=== PATIENT | male | born 1970 | race Caucasian/White ===

== ENCOUNTER 2016-12-05 12:07 | Emergency (ER) | payer MEDICARE, OTHER ==
[~2016-12-05] VITALS: Ht 180.3 cm; Wt 109.3 kg
[2016-12-05] MEDS ORDERED: GEMF600T PO (12:16)
[2016-12-05] MEDS ORDERED: NAPR550T3 PO (12:16)
[2016-12-05] MEDS ORDERED: TRAM-533 PO (12:16)
[2016-12-05] MEDS ORDERED: OMEP20CA3 PO (12:16)
[2016-12-05] MEDS ORDERED: SM A PO (12:16)
[2016-12-05] MEDS ORDERED: VITA50003 PO (12:16)
[2016-12-05] MEDS ORDERED: METOCLOPRAMIDE 10 MG TAB PO ONE (12:45)
[2016-12-05] MEDS ORDERED: KETOROLAC 60 MG/2 ML VIAL (J1885) IM ONE (12:45)
--- NOTE | 2016-12-05 13:04 | REP ---
CT Head without contrast HISTORY: Trauma COMPARISON: None There is no intraparenchymal hemorrhage, acute infarct, mass or midline shift. The ventricular system is normal in appearance. There is no extra cerebral collection. There is no fracture. The visualized sinuses are clear. IMPRESSION: There is no intracranial lesion. Signed by Shar Macias MD 12/05/2016 12:56 P
[2016-12-05 13:13] VITALS: BP 148/75
== END 2016-12-05 13:13 | disposition home or self-care (01) ==
LOC: M ED 12:30
DX: S00.03XA Contusion of scalp, initial encounter (principal); S06.0X0A Concussion without loss of consciousness, initial encounter; W22.8XXA Striking against or struck by other objects, initial encounter; Y92.89 Other specified places as the place of occurrence of the external cause; Y93.89 Activity, other specified; Y99.8 Other external cause status; Z87.820 Personal history of traumatic brain injury; Z79.899 Other long term (current) drug therapy; Z79.1 Long term (current) use of non-steroidal anti-inflammatories (NSAID); Z79.891 Long term (current) use of opiate analgesic; Z88.0 Allergy status to penicillin; Z88.1 Allergy status to other antibiotic agents; Z91.018 Allergy to other foods
CPT/HCPCS: 70450; 96372; 99282; J1885

== ENCOUNTER → 2017-04-30 | Outpatient (REF) | payer MEDICARE, OTHER ==
[~2017-04-30] MED LIST: GEMF600T PO; NAPR550T22 PO; OMEP20CA3 PO; SM A PO; TRAM-533 PO; VITA1CAP40 PO
[2017-04-30 14:25] LABS: BACTERIA, URINE NONE SEEN; CALCIUM OXALATE CRYSTALS,URINE MOD AMOUNT /hpf; HYALINE CAST, URINE NONE SEEN /lpf (0-1); MICROSCOPIC EXAM PERFORMED; RBC, URINE 0-1 /hpf (0-3); SQUAMOUS EPITHELIAL CELL URINE NONE SEEN /hpf (SMALL AMT); WBC, URINE 0-1 /hpf (0-3)
== END ==
LOC: M LAB REF 12:54
PROVIDERS: ATTEND Nurse Practitioner Adult Health
DX: R31.9 Hematuria, unspecified (principal)

== ENCOUNTER → 2017-08-21 | Outpatient (REF) | payer MEDICARE, OTHER ==
[2017-08-21 16:45] LABS: FERRITIN 396 NG/ML (26-388); IRON (FE) 83 UG/DL (65-175); PERCENT SATURATION 29.4 % (19.7-50.0); TOTAL IRON BINDING CAPACITY 282 UG/DL (250-450)
[2017-08-22 08:58] LABS: CONTROL LINE HPYORI INT CTR LINE PRESENT; H PYLORI QUALITATIVE IgG NEGATIVE (NEGATIVE)
[2017-08-24 00:07] LABS: ANTINUCLEAR ANTIBODIES DIRECT Negative (Negative)
[2017-08-24 08:06] LABS: CERULOPLASMIN 39.5 mg/dL (16.0-31.0)
== END ==
LOC: M LAB REF 16:05
DX: K76.0 Fatty (change of) liver, not elsewhere classified (principal); R10.13 Epigastric pain; R16.0 Hepatomegaly, not elsewhere classified
CPT/HCPCS: 83550

== ENCOUNTER → 2017-09-04 | Outpatient (REF) | LOC: M SMT 14:29 | DX: M51.37 Other intervertebral disc degeneration, lumbosacral region (principal) ==

== ENCOUNTER 2017-10-16 07:53 | Day surgery (SDC) | payer MEDICARE, OTHER ==
[2017-10-16] MEDS: NS 1,000 ML IV (08:00)
[2017-10-16] MEDS ORDERED: PROPOFOL 200 MG/20 ML VIAL As Ordered ×2 (08:36→11:10)
[2017-10-16] MEDS ORDERED: LIDOCAINE 2% INJ 100 MG/5 ML SDV (FOR ANES.) As Ordered (08:36)
[2017-10-16] MEDS ORDERED: fentaNYL 100 MCG/2 ML INJECTION (J3010) As Ordered (10:36)
== END 2017-10-16 12:17 | disposition home or self-care (01) ==
LOC: M OPP 07:53
DX: K62.5 Hemorrhage of anus and rectum (principal); D12.0 Benign neoplasm of cecum; K64.0 First degree hemorrhoids; R12 Heartburn; K44.9 Diaphragmatic hernia without obstruction or gangrene; K21.9 Gastro-esophageal reflux disease without esophagitis; E11.9 Type 2 diabetes mellitus without complications; M19.90 Unspecified osteoarthritis, unspecified site; G47.30 Sleep apnea, unspecified; R06.83 Snoring; E66.9 Obesity, unspecified; Z88.1 Allergy status to other antibiotic agents; Z88.0 Allergy status to penicillin; Z91.040 Latex allergy status; Z91.018 Allergy to other foods; Z79.82 Long term (current) use of aspirin; Z79.899 Other long term (current) drug therapy; Z79.84 Long term (current) use of oral hypoglycemic drugs; Z80.41 Family history of malignant neoplasm of ovary
CPT/HCPCS: 45380

== ENCOUNTER → 2017-12-27 | Outpatient (REF) | payer MEDICARE, OTHER ==
[2017-12-29 08:11] LABS: LDL DIRECT 107 mg/dL (0-99)
== END ==
LOC: M LAB REF 16:32
DX: E78.2 Mixed hyperlipidemia (principal)
CPT/HCPCS: 83721

== ENCOUNTER → 2018-02-27 | Outpatient (REF) | payer MEDICARE, OTHER ==
[2018-03-01 08:06] LABS: LDL DIRECT 103 mg/dL (0-99)
== END ==
LOC: M LAB REF 17:24
DX: E78.2 Mixed hyperlipidemia (principal)
CPT/HCPCS: 83721

== ENCOUNTER → 2019-02-23 | Outpatient (REF) | payer OTHER ==
[~2019-02-23] MED LIST changes: +ASPI81TA26 PO; +FISH100049 PO; -GEMF600T PO; +GEMF600T5 PO; +LORA-479 PO; +METF500T13 PO; +NAPR-832 PO; -NAPR550T22 PO; -OMEP20CA3 PO; +OMEP20CA4 PO; -SM A PO; -VITA1CAP40 PO; +VITA50005 PO
[2019-02-23 17:59] LABS: VITAMIN B12 LEVEL 565 PG/ML (247-911)
[2019-02-24 10:42] LABS: H PYLORI QUALITATIVE IgG NEGATIVE (NEGATIVE)
== END ==
LOC: M LAB REF 16:30
PROVIDERS: ATTEND Internal Medicine
DX: R10.13 Epigastric pain (principal); D51.9 Vitamin B12 deficiency anemia, unspecified

== ENCOUNTER 2019-12-26 14:04 | Inpatient (IN) | payer OTHER ==
[~2019-12-26] VITALS: Ht 180.3 cm; Wt 108.0 kg
[~2019-12-26 14:04] MED LIST changes: -LORA-479 PO; +LORA-926 PO; +OMEP1CAP73 PO; -OMEP20CA4 PO
[2019-12-26] MEDS ORDERED: JARD1TAB PO (14:27)
[2019-12-26] MEDS ORDERED: CYCL-707 PO (14:27)
[2019-12-26] MEDS ORDERED: GABA-843 PO (14:27)
[2019-12-26] MEDS ORDERED: ONDANSETRON 4MG/2ML VIAL IV ONE (14:30)
[2019-12-26] MEDS ORDERED: NS 1,000 ML IV ONE ×2 (14:30→16:15)
[2019-12-26 14:39] LABS: VENOUS BASE EXCESS -5.6 (-2.0-2.0); VENOUS HCO3 15.7 MEQ/L (23.0-27.0); VENOUS O2 SATURATION 97.4 % (60.0-80.0); VENOUS PARTIAL PRESSURE CO2 22.6 mmHg (38.0-50.0); VENOUS PARTIAL PRESSURE O2 88.3 mmHg (30.0-50.0); VENOUS PH 7.459 UNITS (7.330-7.430); VENOUS STANDARD HCO3 19.9 MEQ/L; VENOUS TOTAL CO2 16.4 MEQ/L (24.0-28.0)
[2019-12-26] MEDS ORDERED: METOCLOPRAMIDE INJ 10MG/2ML VIAL (J2765 PER 1) IV ONE (15:00)
[2019-12-26] MEDS ORDERED: MORPHINE 4 MG/ML 1ML VIAL/SYRINGE (J2270) IV ONE (15:00)
[2019-12-26 15:48] LABS: HEMATOCRIT 45.9 % (42.0-52.0); HEMOGLOBIN 16.4 g/dl (13.5-17.5); MEAN CORPUSCULAR HEMOGLOBIN 29.9 pg (27.0-33.0); MEAN CORPUSCULAR VOLUME 83.5 fl (80.0-96.0); WHITE BLOOD COUNT 13.1 10^3/uL (4.0-10.0)
[2019-12-26 15:49] LABS: BASO % 0.5 % (0.0-1.0); EOS % 0.1 % (0.0-3.0); LYMPH % 9.7 % (24.0-44.0); MEAN CORPUSCULAR HGB CONC 35.4 g/dl (32.0-36.5); NEUTROPHILS % 84.3 % (36.0-66.0); PLATELET COUNT, AUTOMATED 269 10^3/uL (150-450)
[2019-12-26 15:50] LABS: BASO # 0.1 10^3/uL (0.0-0.2); LYMPH # 1.3 10^3/uL (1.5-5.0); MONO # 0.7 10^3/uL (0.0-0.8); NEUTROPHILS # 11.1 10^3/uL (1.5-8.5)
[2019-12-26 16:10] LABS: ALBUMIN 3.4 GM/DL (3.2-5.2); ALT/SGPT 70 U/L (12-78); BILIRUBIN,DIRECT 0.1 MG/DL (0.0-0.2); LIPASE 6960 U/L (73-393)
[2019-12-26] MEDS ORDERED: ISOVUE-370 76% 100ML VIAL As Ordered ONE (16:17)
[2019-12-26 16:23] LABS: BACTERIA, URINE AUTO NEGATIVE (NEGATIVE); RBC, URINE AUTO 6 /HPF (0-3); SQUAMOUS EPITHELIAL CELL UR AU 0 /HPF (0-6); WBC, URINE AUTO 0 /HPF (0-3)
[2019-12-26 16:30] LABS: APPEARANCE, URINE CLEAR (CLEAR); COLOR, URINE YELLOW (YELLOW); PROTEIN, URINE AUTO NEGATIVE (NEGATIVE)
[2019-12-26] MEDS ORDERED: HYDROMORPHONE HCL 0.5 MG/ 0.5 ML SYRINGE (J1170 PER 1) IV ONE (16:30)
[2019-12-26 16:31] LABS: BILIRUBIN, URINE AUTO NEGATIVE (NEGATIVE); BLOOD, URINE BLOOD NEGATIVE (NEGATIVE); GLUCOSE, URINE (UA) AUTO 3+ mg/dL (NEGATIVE); KETONE, URINE AUTO 3+ mg/dL (NEGATIVE); LEUKOCYTE ESTERASE, URINE AUTO NEGATIVE (NEGATIVE); NITRITE, URINE AUTO NEGATIVE (NEGATIVE); UROBILINOGEN, URINE AUTO 0.2 mg/dL (0.0-2.0)
[2019-12-26] MEDS ORDERED: VASC1CAP2 PO (16:46)
[2019-12-26] MEDS ORDERED: GLIM1TAB4 PO (16:47)
[2019-12-26 16:50] LABS: CHOLESTEROL LEVEL 775 MG/DL (<200); HDL CHOLESTEROL 50 MG/DL (> 40); HDL CHOLESTEROL 50 MG/DL (>40); TRIGLYCERIDES LEVEL 5550 MG/DL (<150)
[2019-12-26] MEDS ORDERED: NS 1,000 ML IV SCH (17:00)
[2019-12-26] MEDS ORDERED: CYCLOBENZAPRINE 10MG TABLET PO PRN (17:00)
[2019-12-26] MEDS ORDERED: LORATADINE 10 MG TAB PO PRN (17:00)
--- NOTE | 2019-12-26 17:02 | HPEPDOC ---
[facility] Medical History & Physical Date of Admission December 26, 2019 Date of Service: December 26, 2019 History and Physical CHIEF COMPLAINT: nausea, vomiting, abdominal pain HISTORY OF PRESENT ILLNESS: 49 yo male in his usual state of health, when to [employer] for breakfast this morning around 9am. Roughly 30 minutes later experi enced severe abdominal pain, nausea and vomiting. Has never had this type of pain before. He was diagnosed with DM last summer, and has been taking his current medication regimen since then. However, he has not taken any of his medications for the past month.Denies any other medical complaints. Denies shortness of breath, chest pain, diarrhea, headaches. Follows with Dr. Whiting and Dr. Orlando. PAST MEDICAL HISTORY: #DLP #DMII ALLERGIES: Please see below. REVIEW OF SYSTEMS: Negative except as per HPI. HOME MEDICATIONS: Please see below. PHYSICAL EXAMINATION: VITAL SIGNS: See below GENERAL APPEARANCE: moderate distress HEENT: NC/AT, EOMI, PERRL Lungs: CTA B/L Heart: +S1S2, RRR Abd: soft, obese, tender, +BS Ext: no edema LABORATORY DATA: See below. MICROBIOLOGY: Please see below. ASSESSMENT: 49 yo male admitted for acute pancreatitis, PMHx of DM, HLD. #acute pancreatitis - likely secondary to hypertriglyceridemia - admit to ICU - insulin gtt until TG <500, check TG q12h - D51/2NS to keep glucose 150-200 - FS q1h - NPO - pain control - no necrosis or abscess reported on CT A/P - liver ultrasound in am to eval for gallstones #DM - hold home oral medications for now - carb consistent diet when able to tolerate - as above on insulin gtt #DLP - as above #DVT prophylaxis - heparin SC Vital Signs Vital Signs Date Time Temp Pulse Resp B/P (MAP) Pulse Ox O2 Delivery O2 Flow Rate FiO2 12/26/19 16:34 18 12/26/19 14:55 98 Room Air 12/26/19 14:23 12/26/19 14:05 97.8 104 Laboratory Data Labs 24H Laboratory Tests 2 12/26/19 14:21: Bedside Glucose (Misc Panel) 356H 12/26/19 14:32: Immature Granulocyte % (Auto) 0.4, Neutrophils (%) (Auto) 84.3H, Lymphocytes (%) (Auto) 9.7L, Monocytes (%) (Auto) 5.0, Eosinophils (%) (Auto) 0.1, Basophils (%) (Auto) 0.5, Neutrophils # (Auto) 11.1H, Lymphocytes # (Auto) 1.3L, Monocytes # ( Auto) 0.7, Eosinophils # (Auto) 0.0, Basophils # (Auto) 0.1, Nucleated Red Blood Cells % (auto) 0.0, Blood Gas Bicarbonate Standard 19.9, Venous Blood pH 7.459H, Venous Blood Partial Pressure CO2 22.6L, Venous Blood Partial Pressure O2 88.3H, Venous Blood Total Carbon Dioxide 16.4L, Venous Blood HCO3 15.7L, Venous Blood Oxygen Saturation 97.4H, Venous Blood Base Excess -5.6L, Lactic Acid Level 3.5 *H, Total Bilirubin 1.0, Direct Bilirubin 0.1, Aspartate Amino Transf (AST/SGOT) 40H, Alanine Aminotransferase (ALT/SGPT) 70, Alkaline Phosphatase 85, Total Protein 6.0L, Albumin 3.4, Albumin/Globulin Ratio 1.3, Triglycerides Level 5550H, Total Cholesterol 775H, LDL Cholesterol , HDL Cholesterol 50, Total HDL Cholesterol 50, Lipase 6960H 12/26/19 14:37: POC Glucose (Misc Panel) 409H, POC Sodium (Misc Panel) 132L, POC Potassium (Misc Panel) 4.2, POC Chloride (Misc Panel) 106, POC Total CO2 (Misc Panel) 19.0L, POC Blood Urea Nitrogen (Misc Panel 13, POC Ionized Calcium (Misc Panel) 4.4L, POC Creatinine (Misc Panel) 0.7, POC Hematocrit (Misc Panel) 50.0 12/26/19 16:07: Urine Color YELLOW, Urine Appearance CLEAR, Urine pH 5.0, Urine Specific [place] 1.020, Urine Protein NEGATIVE, Urine Glucose (Auto)(UA) 3+H, Urine Ketones (Auto) 3+H, Urine Blood NEGATIVE, Urine Nitrite NEGATIVE, Urine Bilirubin NEGATIVE, Urine Urobilinogen 0.2, Urine Leukocyte Esterase (Auto) NEGATIVE, Urine WBC (Auto) 0, Urine RBC (Auto) 6H, Urine Hyaline Casts (Auto) 0, Urine Bacteria (Auto) NEGATIVE, Urine Squamous Epithelial Cells 0, Urine Sperm (Auto) CBC/BMP Laboratory Tests 12/26/19 14:32 Home Medications Scheduled Empagliflozin (Jardiance) 10 Mg Tablet, 10 MG PO DAILY Gabapentin (Gabapentin) 300 Mg Capsule, 600 MG PO BID Glimepiride (Glimepiride) 1 Mg Tablet, 3 MG PO DAILY Icosapent Ethyl (Vascepa) 1 Gm Capsule, 2 GM PO DAILY Metformin HCl (Metformin HCl) 500 Mg Tab, 1,000 MG PO BID Omeprazole (Omeprazole) 20 Mg Cap, 20 MG PO DAILY Scheduled PRN Cyclobenzaprine HCl (Cyclobenzaprine HCl) 10 Mg Tablet, 10 MG PO TID PRN for MUSCLE SPASMS Loratadine (Loratadine) 10 Mg Tab, 10 MG PO DAILY PRN for CONGESTION Naproxen Sodium (Naproxen Sodium) 550 Mg Tab, 550 MG PO DAILY PRN for PAIN Tramadol HCl (Tramadol Hydrochloride) 50 Mg Tab, 50 MG PO BID PRN for PAIN Allergies Coded Allergies: Crews (Verified Allergy, Unknown, 10/09/17) Cephalosporins (Verified Allergy, Unknown, anaphylaxis, 12/26/19) Penicillins (Verified Allergy, Unknown, anaphylaxis, 12/26/19) bee venom protein (honey bee) (Verified Allergy, Unknown, anaphylaxis, 12/26/19) madsen (Verified Allergy, Unknown, anaphylaxis, 12/26/19) latex (Verified Allergy, Unknown, erythema, 12/26/19) A-FIB/CHADSVASC A-FIB History Current/History of A-Fib/PAF?: BART Esqueda MD December 26, 2019 17:02
[2019-12-26] MEDS ORDERED: HumaLOG INSULIN (NovoLOG) PER UNIT SC SCH (18:00)
[2019-12-26 18:04] LABS: C REACTIVE PROTEIN QUANTITATIV 0.33 MG/DL (0.00-0.30)
[2019-12-26] MEDS ORDERED: GLUCOSE 4GM CHEW TABLET PO PRN (18:30)
[2019-12-26] MEDS ORDERED: DEXTROSE 50% 50 ML SYRINGE IV PRN (18:30)
[2019-12-26] MEDS ORDERED: GLUCAGON INJ 1MG VIAL SC PRN (18:30)
[2019-12-26 18:45] VITALS: BP 137/94
[2019-12-26] MEDS: METOCLOPRAMIDE INJ 10MG/2ML VIAL (J2765 PER 1) IV PRN (19:05)
[2019-12-26] MEDS: MORPHINE 2 MG/ML 1ML VIAL (J2270) IV PRN ×2 (19:06→23:23)
[2019-12-26 21:00] VITALS: BP 117/78
[2019-12-26] MEDS: GABAPENTIN 300 MG CAP PO SCH (21:51)
[2019-12-26] MEDS: D5W/0.45% SODIUM CHLORIDE 1,000 ML IV SCH (21:51)
[2019-12-26] MEDS: HEPARIN SOD (PORCINE) 5000UNITS/ML VIAL (J1644 PER 1000UNITS) SC SCH (21:52)
[2019-12-26 22:00] VITALS: BP 131/77
[2019-12-26] MEDS: INSULIN REGULAR IN 0.9 % NACL 100 UNIT in IV 1 EA IV SCH ×2 (22:13)
[2019-12-26 23:47] VITALS: BP 131/74
[2019-12-27] VITALS: BP 131/74
[2019-12-27] MEDS: METOCLOPRAMIDE INJ 10MG/2ML VIAL (J2765 PER 1) IV PRN ×2 (00:03→05:26)
[2019-12-27 00:41] LABS: BLOOD UREA NITROGEN 9 MG/DL (7-18); CALCIUM LEVEL 6.3 MG/DL (8.5-10.1); CARBON DIOXIDE LEVEL 18 MEQ/L (21-32); CHLORIDE LEVEL 101 MEQ/L (98-107); GLOMERULAR FILTRATION RATE > 60.0 (>56); GLUCOSE, FASTING 319 MG/DL (70-100); POTASSIUM SERUM 3.8 MEQ/L (3.5-5.1); SODIUM LEVEL 130 MEQ/L (136-145)
[2019-12-27] MEDS: INSULIN IV RATE CHANGE DOCUMENTATION ML/HR XX SCH ×5 (02:04→15:14)
[2019-12-27] MEDS ORDERED: ONDANSETRON 4MG/2ML VIAL IV PRN (03:00)
[2019-12-27] MEDS ORDERED: MORPHINE 2 MG/ML 1ML VIAL (J2270) IV ONE ×2 (03:00→18:45)
[2019-12-27] MEDS: D5W/0.45% SODIUM CHLORIDE 1,000 ML IV SCH (03:12)
[2019-12-27 04:00] VITALS: BP 125/69
[2019-12-27 04:06] LABS: GLUCOSE, FASTING 326 MG/DL (70-100)
[2019-12-27 04:07] LABS: BLOOD UREA NITROGEN 8 MG/DL (7-18); CALCIUM LEVEL 6.6 MG/DL (8.5-10.1); CARBON DIOXIDE LEVEL 18 MEQ/L (21-32); CHLORIDE LEVEL 104 MEQ/L (98-107); CREATININE FOR GFR 0.89 MG/DL (0.70-1.30); GLOMERULAR FILTRATION RATE > 60.0 (>56); POTASSIUM SERUM 3.6 MEQ/L (3.5-5.1); SODIUM LEVEL 131 MEQ/L (136-145)
[2019-12-27] MEDS: HEPARIN SOD (PORCINE) 5000UNITS/ML VIAL (J1644 PER 1000UNITS) SC SCH ×3 (05:26→21:00)
[2019-12-27] MEDS ORDERED: PROMETHAZINE INJ 25 MG/ML VIAL (J2550) IV ONE ×2 (05:45→15:00)
[2019-12-27 06:06] LABS: BASO % 0.2 % (0.0-1.0); HEMATOCRIT 47.5 % (42.0-52.0); HEMOGLOBIN 16.8 g/dl (13.5-17.5); LYMPH % 7.4 % (24.0-44.0); MEAN CORPUSCULAR HEMOGLOBIN 30.4 pg (27.0-33.0); MEAN CORPUSCULAR HGB CONC 35.4 g/dl (32.0-36.5); MEAN CORPUSCULAR VOLUME 86.1 fl (80.0-96.0); MONO # 1.4 10^3/uL (0.0-0.8); MONO % 10.5 % (0.0-5.0); NEUTROPHILS # 10.5 10^3/uL (1.5-8.5); NEUTROPHILS % 81.4 % (36.0-66.0); PLATELET COUNT, AUTOMATED 255 10^3/uL (150-450); RED BLOOD COUNT 5.52 10^6/uL (4.30-6.10); WHITE BLOOD COUNT 12.9 10^3/uL (4.0-10.0)
[2019-12-27 06:30] LABS: HEMOGLOBIN A1c 10.5 %
[2019-12-27 07:44] LABS: ALBUMIN 3.1 GM/DL (3.2-5.2); ALT/SGPT 32 U/L (12-78); BILIRUBIN,TOTAL 1.1 MG/DL (0.2-1.0); BLOOD UREA NITROGEN 9 MG/DL (7-18); CALCIUM LEVEL 6.2 MG/DL (8.5-10.1); CARBON DIOXIDE LEVEL 19 MEQ/L (21-32); CHLORIDE LEVEL 103 MEQ/L (98-107); CHOLESTEROL LEVEL 459 MG/DL (<200); CREATININE FOR GFR 0.95 MG/DL (0.70-1.30); GLOMERULAR FILTRATION RATE > 60.0 (>56); GLUCOSE, FASTING 270 MG/DL (70-100); HDL CHOLESTEROL 30 MG/DL (>40); LIPASE 4342 U/L (73-393); NON-HDL-C 429 MG/DL; POTASSIUM SERUM 3.9 MEQ/L (3.5-5.1); SODIUM LEVEL 131 MEQ/L (136-145); TOTAL PROTEIN 6.9 GM/DL (6.4-8.2); TRIGLYCERIDES LEVEL 6371 MG/DL (<150)
[2019-12-27 08:07] VITALS: BP 131/62
--- NOTE | 2019-12-27 08:10 | ECGEPIP ---
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 Order Number: [id number] Reading MD: Jyoti Galicia Measurements Intervals [place] Rate: 96 P: 28 TN: 139 QRS: -10 QRSD: 91 T: 24 QT: 347 QTc: 439 Interpretive Statements SINUS RHYTHM No prior Electronically Signed on 12-27-2019 8:09:27 EDT by Jyoti Galicia
[2019-12-27] MEDS: GABAPENTIN 300 MG CAP PO SCH ×2 (08:13→20:05)
[2019-12-27] MEDS: OMEPRAZOLE 20 MG CAP PO SCH ×2 (08:15→08:18)
[2019-12-27] MEDS: MORPHINE 2 MG/ML 1ML VIAL (J2270) IV PRN ×3 (08:15→20:05)
[2019-12-27] MEDS: D5W/0.9% SODIUM CHLORIDE 1,000 ML IV SCH ×3 (08:55→23:35)
[2019-12-27] MEDS ORDERED: CALCIUM GLUCONATE 1,000 MG in D5W MINI-BAG PLUS 100 ML IV ONE ×2 (09:00→21:15)
--- NOTE | 2019-12-27 09:13 | REP ---
Clinical: Abdominal pain with elevated lactic acid levels. Technique: Axial contrast enhanced images from the lung bases to the pubic symphysis using 100 ml Isovue 370 intravenous contrast material with coronal and sagittal re-formations. Comparison: 07/16/2011. Findings: Peripancreatic inflammatory stranding and small amount of fluid extends along the left anterior pararenal space along with mild edematous appearance to the pancreatic body/tail. Findings are compatible with acute pancreatitis. No drainable collection/abscess or pseudocyst. Diffuse fatty infiltration to the liver noted. Spleen, gallbladder, bilateral adrenal glands and kidneys are normal. The enteric system including stomach, small and large bowel is unremarkable. Normal terminal ileum, cecum and appendix are identified in the right lower quadrant. Few colonic and sigmoid diverticula noted without acute diverticulitis. Pelvis demonstrates normal bladder and age appropriate prostate/seminal vesicles. No adenopathy. No free air. No abdominal aortic aneurysm or dissection. Musculoskeletal structures intact without acute focal abnormality. Lung bases demonstrate minimal posterior basilar dependent changes. Visualized heart and pericardium normal. Impression: 1. Acute pancreatitis as described above. Electronically Signed by Elvin Magdaleno MD 12/27/2019 09:02 A
[2019-12-27 09:15] LABS: MAGNESIUM LEVEL 2.1 MG/DL (1.8-2.4); PHOSPHORUS LEVEL 0.5 MG/DL (2.5-4.9)
[2019-12-27] MEDS: INSULIN REGULAR IN 0.9 % NACL 100 UNIT in IV 1 EA IV SCH ×4 (10:25→23:37)
--- NOTE | 2019-12-27 10:35 | IPNPDOC ---
Text Note Date of Service The patient was seen on 12/27/19. NOTE Subjective: Patient is a 49-year-old male with a PMHx of NIDDM2, DLP, who presented to the hospital with complaints of abdominal discomfort associated wi th nausea and vomiting after he had eaten breakfast at [employer]. On arrival to ER, lab work was consistent with acute pancreatitis associated with hypertriglyceridemia. Patient was admitted to the hospitalist service for further evaluation and treatment Patient was seen and examined at the bedside. Patient reports that there stilts rinsing some abdominal pain associated with nausea and vomiting. They do not experience any shortness of breath, chest pain or palpitations. Reports constipation. Denies any urinary discomfort. Objective: Vitals (See below) General: Lying in bed, no acute distress, comfortable, AAOx3 HEENT: NC, AT CVS: RRR, +S1S2 Lungs: Fair air entry b/l, auscultations without any rhonchi, rales or crackles Abdomen: Soft, nondistended, diffusely tender, no rebound or rigidity Extremities: Lower extremities appear to be free of any pitting edema, - Calf tenderness Assessment and plan: Acute pancreatitis - likely 2/2 Hypertriglyceridemia - Patient still reporting abdominal pain associated with nausea and vomiting - Physical with evidence of abdominal tenderness - Hemodynamically stable and afebrile - Triglyceride levels remain elevated - CT abdomen / pelvis 12/26: 1. Acute pancreatitis as described above (peripanc reatic inflammatory stranding and small amount of fluid extends along left anterior pararenal space along with mild edematous appearance to the pancreatic body/tail. No drainable collection/abscess or pseudocyst) - Will continue with insulin drip and dextrose base fluids - Continue with pain control and anti-emetics NIDDM2 - Will start insulin drip while in ICU (re: Hypertriglyceridemia) Hypocalcemia - Will give IV supplementation Hypophosphatemia - Will give IV supplementation DLP - Elevated triglyceride levels - Will start Fenofibrate when off insulin drip - Will start Atorvastatin Neuropathy - c/w Gabapentin GERD - c/w Omeprazole DVT prophylaxis - c/w Heparin VS,Fishbone, I+O VS, Fishbone, I+O Laboratory Tests 12/26/19 14:32 12/26/19 23:55 12/27/19 02:59 12/27/19 05:53 Vital Signs Date Time Temp Pulse Resp B/P (MAP) Pulse Ox O2 Delivery O2 Flow Rate FiO2 12/27/19 08:25 20 94 Room Air 12/27/19 08:07 98.9 109 131/62 (85) 12/26/19 23:00 2.0 I&O- Last 24 Hours up to 6 AM 12/27/19 06:00 Intake Total 3698 ml Output Total 1425 ml Balance 2273 ml CLAYTON SALAZAR MD December 27, 2019 10:35
[2019-12-27] MEDS: ATORVASTATIN 20 MG TAB PO SCH (11:13)
[2019-12-27] MEDS: PROMETHAZINE INJ 25 MG/ML VIAL (J2550) IV PRN ×2 (11:13→18:27)
[2019-12-27 12:00] VITALS: BP 118/74
[2019-12-27] MEDS ORDERED: SODIUM PHOSPHATE INJ 30 MMOL in D5W 500 ML IV ONE (12:00)
[2019-12-27 12:07] LABS: HEMOGLOBIN 16.5 g/dl (13.5-17.5); MEAN CORPUSCULAR HEMOGLOBIN 30.4 pg (27.0-33.0); MEAN CORPUSCULAR HGB CONC 35.1 g/dl (32.0-36.5); MEAN CORPUSCULAR VOLUME 86.7 fl (80.0-96.0); PLATELET COUNT, AUTOMATED 273 10^3/uL (150-450); RED BLOOD COUNT 5.42 10^6/uL (4.30-6.10); WHITE BLOOD COUNT 10.6 10^3/uL (4.0-10.0)
[2019-12-27] MEDS ORDERED: PROPOFOL 1,000 MG/100 ML VIAL As Ordered ONE (12:31)
[2019-12-27 12:38] LABS: LYMPHOCYTES 9 % (16-44); MONOCYTES 9 % (0-5); NEUTROPHILS 82 % (28-66); PLATELET ESTIMATE NORMAL (NORMAL)
[2019-12-27 14:29] LABS: ALBUMIN 2.6 GM/DL (3.2-5.2); ALT/SGPT 29 U/L (12-78); BILIRUBIN,TOTAL 1.1 MG/DL (0.2-1.0); BLOOD UREA NITROGEN 8 MG/DL (7-18); CALCIUM LEVEL 5.8 MG/DL (8.5-10.1); CARBON DIOXIDE LEVEL 22 MEQ/L (21-32); CHLORIDE LEVEL 103 MEQ/L (98-107); CREATININE FOR GFR 1.03 MG/DL (0.70-1.30); GLOMERULAR FILTRATION RATE > 60.0 (>56); GLUCOSE, FASTING 265 MG/DL (70-100); MAGNESIUM LEVEL 2.1 MG/DL (1.8-2.4); PHOSPHORUS LEVEL 0.6 MG/DL (2.5-4.9); SODIUM LEVEL 133 MEQ/L (136-145); TOTAL PROTEIN 6.5 GM/DL (6.4-8.2)
[2019-12-27] MEDS ORDERED: SODIUM PHOSPHATE INJ 30 MMOL in D5W 500 ML IV SCH (14:45)
[2019-12-27] MEDS: CALCIUM GLUCONATE 1,000 MG in D5W MINI-BAG PLUS 100 ML IV SCH ×2 (15:17→16:20)
--- NOTE | 2019-12-27 15:34 | REP ---
Clinical: Pancreatitis. Technique: Real time saldana scale ultrasound examination using curved array transducer. Findings: Liver is increased echogenicity with poor through transmission suggesting fatty infiltration. The pancreas is incompletely evaluated due to interposed bowel gas. The gallbladder is normal and without gallstones, wall thickening, or pericholecystic fluid. No biliary ductal dilatation is appreciated and the common bile duct measures 5.8 mm diameter. The right kidney is normal in reniform shape without hydronephrosis and measures 12.3 x 5.4 x 6.2 cm. Trace free fluid noted. Impression: 1. Hepatic steatosis. 2. Trace free fluid in the right upper quadrant. 3. No evidence for cholecystitis. Electronically Signed by Elvin Magdaleno MD 12/27/2019 03:26 P
[2019-12-27 16:00] VITALS: BP 126/80
[2019-12-27 18:28] LABS: HEMATOCRIT 48.1 % (42.0-52.0); HEMOGLOBIN 16.4 g/dl (13.5-17.5); MEAN CORPUSCULAR HEMOGLOBIN 29.5 pg (27.0-33.0); MEAN CORPUSCULAR HGB CONC 34.1 g/dl (32.0-36.5); MEAN CORPUSCULAR VOLUME 86.5 fl (80.0-96.0); PLATELET COUNT, AUTOMATED 284 10^3/uL (150-450); RED BLOOD COUNT 5.56 10^6/uL (4.30-6.10); WHITE BLOOD COUNT 9.4 10^3/uL (4.0-10.0)
[2019-12-27 18:54] LABS: LYMPHOCYTES 10 % (16-44); MONOCYTES 6 % (0-5); NEUTROPHILS 80 % (28-66); PLATELET ESTIMATE NORMAL (NORMAL)
[2019-12-27 20:00] VITALS: BP 120/81
[2019-12-27] MEDS: PANTOPRAZOLE 40MG VIAL (C9113 PER 1) IV SCH (20:05)
[2019-12-27 20:48] LABS: BLOOD UREA NITROGEN 8 MG/DL (7-18); CREATININE FOR GFR 1.02 MG/DL (0.70-1.30); GLUCOSE, FASTING 221 MG/DL (70-100)
[2019-12-27 20:49] LABS: CALCIUM LEVEL 6.2 MG/DL (8.5-10.1); CARBON DIOXIDE LEVEL 16.5 mmol/L (20-29); CHLORIDE LEVEL 106 MEQ/L (98-107); GLOMERULAR FILTRATION RATE > 60.0 (>56); POTASSIUM SERUM 4.1 MEQ/L (3.5-5.1); SODIUM LEVEL 136 MEQ/L (136-145)
[2019-12-27 20:50] LABS: ALBUMIN 2.7 GM/DL (3.2-5.2); ALT/SGPT 24 IU/L (0-32); BILIRUBIN,TOTAL 0.8 MG/DL (0.2-1.0); MAGNESIUM LEVEL 1.9 MG/DL (1.8-2.4); PHOSPHORUS LEVEL 1.9 MG/DL (2.5-4.9); TOTAL PROTEIN 6.5 GM/DL (6.4-8.2); TRIGLYCERIDES LEVEL 2484 MG/DL (<150)
[2019-12-27] MEDS ORDERED: POTASSIUM PHOSPHATE INJ 15 MMOL in D5W 250 ML IV ONE (22:30)
[2019-12-28] VITALS (9 sets, daily range): BP systolic 108–135; BP diastolic 62–70
[2019-12-28] MEDS: MORPHINE 2 MG/ML 1ML VIAL (J2270) IV PRN ×6 (00:02→21:46)
[2019-12-28] MEDS: PROMETHAZINE INJ 25 MG/ML VIAL (J2550) IV PRN (00:02)
[2019-12-28 00:22] LABS: HEMATOCRIT 46.4 % (42.0-52.0); HEMOGLOBIN 16.2 g/dl (13.5-17.5); MEAN CORPUSCULAR HEMOGLOBIN 30.2 pg (27.0-33.0); MEAN CORPUSCULAR HGB CONC 34.9 g/dl (32.0-36.5); MEAN CORPUSCULAR VOLUME 86.6 fl (80.0-96.0); PLATELET COUNT, AUTOMATED 335 10^3/uL (150-450); RED BLOOD COUNT 5.36 10^6/uL (4.30-6.10); WHITE BLOOD COUNT 9.1 10^3/uL (4.0-10.0)
[2019-12-28 00:50] LABS: LYMPHOCYTES 13 % (16-44); MONOCYTES 4 % (0-5); NEUTROPHILS 78 % (28-66)
[2019-12-28 00:51] LABS: PLATELET ESTIMATE NORMAL (NORMAL)
[2019-12-28 02:20] LABS: ALBUMIN 2.1 GM/DL (3.2-5.2); ALT/SGPT 31 U/L (12-78); BILIRUBIN,TOTAL 1.1 MG/DL (0.2-1.0); BLOOD UREA NITROGEN 9 MG/DL (7-18); CALCIUM LEVEL 5.4 MG/DL (8.5-10.1); CARBON DIOXIDE LEVEL 19 MEQ/L (21-32); CHLORIDE LEVEL 104 MEQ/L (98-107); CREATININE FOR GFR 1.02 MG/DL (0.70-1.30); GLOMERULAR FILTRATION RATE > 60.0 (>56); GLUCOSE, FASTING 255 MG/DL (70-100); MAGNESIUM LEVEL 1.9 MG/DL (1.8-2.4); PHOSPHORUS LEVEL 1.6 MG/DL (2.5-4.9); POTASSIUM SERUM 4.9 MEQ/L (3.5-5.1); SODIUM LEVEL 129 MEQ/L (136-145); TOTAL PROTEIN 6.8 GM/DL (6.4-8.2)
[2019-12-28 04:01] LABS: ALT/SGPT 20.99999 U/L (12-78); BLOOD UREA NITROGEN 10 MG/DL (7-18); CALCIUM LEVEL 5.4 MG/DL (8.5-10.1); CARBON DIOXIDE LEVEL 20 MEQ/L (21-32); CHLORIDE LEVEL 105 MEQ/L (98-107); CREATININE FOR GFR 1.14 MG/DL (0.70-1.30); GLOMERULAR FILTRATION RATE > 60.0 (>56); GLUCOSE, FASTING 238 MG/DL (70-100); PHOSPHORUS LEVEL 1.4 MG/DL (2.5-4.9); POTASSIUM SERUM 4.9 MEQ/L (3.5-5.1); SODIUM LEVEL 133 MEQ/L (136-145); TOTAL PROTEIN 6.4 GM/DL (6.4-8.2)
[2019-12-28] MEDS: CALCIUM GLUCONATE 1,000 MG in D5W MINI-BAG PLUS 100 ML IV SCH ×4 (04:15→15:33)
[2019-12-28] MEDS: INSULIN IV RATE CHANGE DOCUMENTATION ML/HR XX SCH ×12 (04:19→23:04)
[2019-12-28] MEDS: D5W/0.9% SODIUM CHLORIDE 1,000 ML IV SCH ×3 (05:00→20:03)
[2019-12-28] MEDS: HEPARIN SOD (PORCINE) 5000UNITS/ML VIAL (J1644 PER 1000UNITS) SC SCH ×3 (05:03→21:46)
[2019-12-28 06:13] LABS: HEMOGLOBIN 16.5 g/dl (13.5-17.5); MEAN CORPUSCULAR HEMOGLOBIN 30.9 pg (27.0-33.0); MEAN CORPUSCULAR HGB CONC 35.9 g/dl (32.0-36.5); MEAN CORPUSCULAR VOLUME 86.1 fl (80.0-96.0); PLATELET COUNT, AUTOMATED 319 10^3/uL (150-450); RED BLOOD COUNT 5.34 10^6/uL (4.30-6.10); WHITE BLOOD COUNT 8.9 10^3/uL (4.0-10.0)
[2019-12-28] MEDS ORDERED: SODIUM PHOSPHATE INJ 30 MMOL in D5W 500 ML IV ONE (06:15)
[2019-12-28 06:39] LABS: ATYPICAL LYMPH 1 % (0-5); LYMPHOCYTES 14 % (16-44); MONOCYTES 4 % (0-5); NEUTROPHILS 73 % (28-66); PLATELET ESTIMATE NORMAL (NORMAL)
[2019-12-28 07:42] LABS: ALT/SGPT 23 U/L (12-78); BILIRUBIN,TOTAL 1.2 MG/DL (0.2-1.0); BLOOD UREA NITROGEN 9 MG/DL (7-18); CALCIUM LEVEL 5.4 MG/DL (8.5-10.1); CARBON DIOXIDE LEVEL 20 MEQ/L (21-32); CHLORIDE LEVEL 105 MEQ/L (98-107); CREATININE FOR GFR 1.06 MG/DL (0.70-1.30); GLOMERULAR FILTRATION RATE > 60.0 (>56); GLUCOSE, FASTING 207 MG/DL (70-100); MAGNESIUM LEVEL 1.8 MG/DL (1.8-2.4); PHOSPHORUS LEVEL 1.3 MG/DL (2.5-4.9); POTASSIUM SERUM 4.5 MEQ/L (3.5-5.1); SODIUM LEVEL 133 MEQ/L (136-145); TOTAL PROTEIN 6.4 GM/DL (6.4-8.2); TRIGLYCERIDES LEVEL 2802 MG/DL (<150)
[2019-12-28] MEDS ORDERED: CALCIUM GLUCONATE 1,000 MG in D5W MINI-BAG PLUS 100 ML IV ONE ×3 (08:00→21:30)
[2019-12-28] MEDS: PANTOPRAZOLE 40MG VIAL (C9113 PER 1) IV SCH ×2 (08:03→20:03)
[2019-12-28] MEDS: GABAPENTIN 300 MG CAP PO SCH ×2 (08:05→20:03)
[2019-12-28] MEDS: ATORVASTATIN 20 MG TAB PO SCH (08:05)
--- NOTE | 2019-12-28 08:35 | IPNPDOC ---
Text Note Date of Service The patient was seen on 12/28/19. NOTE Subjective: Patient is a 49-year-old male with a PMHx of NIDDM2, DLP, who presented to the hospital with complaints of abdominal discomfort associated wi th nausea and vomiting after he had eaten breakfast at [employer]. On arrival to ER, lab work was consistent with acute pancreatitis associated with hypertriglyceridemia. Patient was admitted to the hospitalist service for further evaluation and treatment Patient was seen and examined at the bedside. Patient continues to experience abdominal discomfort associated with nausea. No vomiting. Is any chest pain, shortness breath or palpitations. Objective: Vitals (See below) General: Lying in bed, reports some abdominal pain, AAOx3 HEENT: NC, AT CVS: +S1S2 Lungs: Fair air entry b/l, there does not appear to be any auscultated rhonchi, crackles or wheezing Abdomen: Remains soft, without any distention. Tenderness is appreciated diffusely Extremities: No evidence of pitting edema lower extremities, - Calf tenderness Assessment and plan: Acute pancreatitis - likely 2/2 Hypertriglyceridemia - Clinically reports abdominal discomfort associated with nausea. No episodes of vomiting - Abdominal tenderness is still appreciated - Hemodynamically stable and afebrile - Triglyceride levels remain elevated; however, are trending down significantly - CT abdomen / pelvis 12/26: 1. Acute pancreatitis as described above (peripancreatic inflammatory stranding and small amount of fluid extends along left anterior pararenal space along with mild edematous appearance to the pancreatic body/tail. No drainable collection/abscess or pseudocyst) - c/w insulin drip and dextrose base fluids - c/w pain control and anti-emetics - Will insert Benitez catheter for strict ins and outs and measurement of intra- bladder pressures NIDDM2 - c/w insulin drip while in ICU (re: Hypertriglyceridemia) - Will transition to insulin sliding scale once triglyceride levels optimized Hypocalcemia - Again will provide IV supplementation Hypophosphatemia - Again will provide IV supplementation DLP - Elevated triglyceride levels - Will start Fenofibrate when off insulin drip - c/w Atorvastatin Neuropathy - c/w Gabapentin GERD - c/w Omeprazole DVT prophylaxis - c/w Heparin Disposition: - Awaiting triglyceride levels to be less than 500 before discontinuing insulin drip VS,Fishbone, I+O VS, Fishbone, I+O Laboratory Tests 5/24/20 11:56 12/27/19 17:44 12/27/19 23:57 12/28/19 00:59 12/28/19 03:05 12/28/19 05:53 Vital Signs Date Time Temp Pulse Resp B/P (MAP) Pulse Ox O2 Delivery O2 Flow Rate FiO2 12/28/19 08:14 18 94 Room Air 12/28/19 04:00 98.9 111 126/70 (88) 12/26/19 23:00 2.0 I&O- Last 24 Hours up to 6 AM 12/28/19 05:59 Intake Total 5991 ml Output Total 1775 ml Balance 4216 ml CLAYTON SALAZAR MD December 28, 2019 08:35
[2019-12-28] MEDS ORDERED: ISOVUE-370 76% 100ML VIAL As Ordered ONE (12:51)
[2019-12-28 12:54] LABS: HEMATOCRIT 44.4 % (42.0-52.0); HEMOGLOBIN 15.3 g/dl (13.5-17.5); MEAN CORPUSCULAR HEMOGLOBIN 29.8 pg (27.0-33.0); MEAN CORPUSCULAR HGB CONC 34.5 g/dl (32.0-36.5); MEAN CORPUSCULAR VOLUME 86.5 fl (80.0-96.0); PLATELET COUNT, AUTOMATED 244 10^3/uL (150-450); RED BLOOD COUNT 5.13 10^6/uL (4.30-6.10)
[2019-12-28 13:21] LABS: LYMPHOCYTES 16 % (16-44); MONOCYTES 9 % (0-5); NEUTROPHILS 66 % (28-66); PLATELET ESTIMATE NORMAL (NORMAL)
[2019-12-28 13:44] LABS: ALT/SGPT 20 U/L (12-78); BILIRUBIN,TOTAL 1.2 MG/DL (0.2-1.0); BLOOD UREA NITROGEN 10 MG/DL (7-18); CALCIUM LEVEL 5.2 MG/DL (8.5-10.1); CARBON DIOXIDE LEVEL 18 MEQ/L (21-32); CHLORIDE LEVEL 106 MEQ/L (98-107); CREATININE FOR GFR 0.89 MG/DL (0.70-1.30); GLOMERULAR FILTRATION RATE > 60.0 (>56); GLUCOSE, FASTING 216 MG/DL (70-100); MAGNESIUM LEVEL 1.8 MG/DL (1.8-2.4); PHOSPHORUS LEVEL 1.8 MG/DL (2.5-4.9); POTASSIUM SERUM 3.5 MEQ/L (3.5-5.1); SODIUM LEVEL 133 MEQ/L (136-145); TOTAL PROTEIN 5.4 GM/DL (6.4-8.2)
--- NOTE | 2019-12-28 13:44 | REP ---
Clinical: Abdominal pain. Technique: Axial contrast enhanced images from the lung bases to the pubic symphysis with coronal and sagittal re-formations using 100 ml Isovue 370 intravenous contrast material. Comparison: 12/26/2019. Findings: Moderate/significant peripancreatic and generalized inflammatory stranding throughout the anterior pararenal space and abdomen/pelvis with fluid extending along the bilateral pericolic gutters into the pelvis is consistent with acute pancreatitis and appears increased from prior examination. No discrete drainable fluid collection/abscess or pseudocyst is identified. The pancreatic parenchyma demonstrates relatively normal enhancement without obvious necrosis or ischemia. Mild fatty infiltration to the liver. Spleen, gallbladder, bilateral adrenal glands and kidneys are normal. The enteric system is without obstruction however mildly prominent loops of small and large bowel suggest secondary inflammatory changes related to the ongoing pancreatitis. No free air to suggest perforation. Pelvis demonstrates Benitez catheter in collapsed bladder along with age appropriate prostate/seminal vesicles. Abdominal aorta and vasculature appear relatively normal. Musculoskeletal structures are intact. Lung bases demonstrate perihilar atelectasis, lower lobe consolidations (left greater than right) and small left pleural effusion. Impression: 1. Increasing generalized inflammatory changes with moderate amount of free fluid consistent with pancreatitis which appears worsened when compared to prior examination. No drainable collection/abscess or pseudocyst. Pancreas demonstrates normal enhancement without ischemia or necrosis. 2. Lung bases demonstrate lower lobe consolidations (left greater than right), perihilar atelectasis, and small left pleural effusion. Electronically Signed by Elvin Magdaleno MD 12/28/2019 01:35 P
[2019-12-28] MEDS: FENOFIBRATE 145 MG TAB (TRICOR) PO SCH (15:34)
[2019-12-28] MEDS: INSULIN REGULAR IN 0.9 % NACL 100 UNIT in IV 1 EA IV SCH ×2 (15:34)
[2019-12-28] MEDS ORDERED: POTASSIUM PHOSPHATE INJ 30 MMOL in D5W 500 ML IV ONE (16:00)
[2019-12-28 18:15] LABS: HEMATOCRIT 45.1 % (42.0-52.0); MEAN CORPUSCULAR HEMOGLOBIN 29.3 pg (27.0-33.0); MEAN CORPUSCULAR HGB CONC 33.3 g/dl (32.0-36.5); MEAN CORPUSCULAR VOLUME 88.1 fl (80.0-96.0); PLATELET COUNT, AUTOMATED 220 10^3/uL (150-450); RED BLOOD COUNT 5.12 10^6/uL (4.30-6.10)
[2019-12-28 18:27] LABS: LYMPHOCYTES 16 % (16-44); MONOCYTES 4 % (0-5); NEUTROPHILS 76 % (28-66); PLATELET ESTIMATE NORMAL (NORMAL)
[2019-12-28 19:01] LABS: ALT/SGPT 22 U/L (12-78); BILIRUBIN,TOTAL 1.2 MG/DL (0.2-1.0); BLOOD UREA NITROGEN 10 MG/DL (7-18); CALCIUM LEVEL 5.5 MG/DL (8.5-10.1); CARBON DIOXIDE LEVEL 22 MEQ/L (21-32); CHLORIDE LEVEL 102 MEQ/L (98-107); CREATININE FOR GFR 1.21 MG/DL (0.70-1.30); GLOMERULAR FILTRATION RATE > 60.0 (>56); GLUCOSE, FASTING 230 MG/DL (70-100); MAGNESIUM LEVEL 1.7 MG/DL (1.8-2.4); PHOSPHORUS LEVEL 4.2 MG/DL (2.5-4.9); POTASSIUM SERUM 4.7 MEQ/L (3.5-5.1); SODIUM LEVEL 134 MEQ/L (136-145); TOTAL PROTEIN 5.2 GM/DL (6.4-8.2); TRIGLYCERIDES LEVEL 2387 MG/DL (<150)
[2019-12-28] MEDS ORDERED: MAG SULF 1GM/100ML (MAG RUN) 1 GM in IV 1 EA IV ONE (20:30)
[2019-12-29] VITALS (9 sets, daily range): BP systolic 117–136; BP diastolic 61–77
[2019-12-29] MEDS: INSULIN IV RATE CHANGE DOCUMENTATION ML/HR XX SCH ×16 (00:03→23:54)
[2019-12-29 00:11] LABS: HEMATOCRIT 41.8 % (42.0-52.0); HEMOGLOBIN 14.3 g/dl (13.5-17.5); MEAN CORPUSCULAR HEMOGLOBIN 29.6 pg (27.0-33.0); MEAN CORPUSCULAR HGB CONC 34.2 g/dl (32.0-36.5); MEAN CORPUSCULAR VOLUME 86.5 fl (80.0-96.0); PLATELET COUNT, AUTOMATED 228 10^3/uL (150-450); RED BLOOD COUNT 4.83 10^6/uL (4.30-6.10)
[2019-12-29 00:34] LABS: EOSINOPHILS 1 % (0-3); LYMPHOCYTES 19 % (16-44); MONOCYTES 2 % (0-5); NEUTROPHILS 74 % (28-66); PLATELET ESTIMATE NORMAL (NORMAL)
[2019-12-29] MEDS: D5W/0.9% SODIUM CHLORIDE 1,000 ML IV SCH (00:46)
[2019-12-29 01:52] LABS: ALBUMIN 1.9 GM/DL (3.2-5.2); ALT/SGPT 19 U/L (12-78); BILIRUBIN,TOTAL 1.3 MG/DL (0.2-1.0); BLOOD UREA NITROGEN 12 MG/DL (7-18); CALCIUM LEVEL 5.7 MG/DL (8.5-10.1); CARBON DIOXIDE LEVEL 20 MEQ/L (21-32); CHLORIDE LEVEL 103 MEQ/L (98-107); CREATININE FOR GFR 1.02 MG/DL (0.70-1.30); GLOMERULAR FILTRATION RATE > 60.0 (>56); GLUCOSE, FASTING 184 MG/DL (70-100); MAGNESIUM LEVEL 2.1 MG/DL (1.8-2.4); POTASSIUM SERUM 3.7 MEQ/L (3.5-5.1); SODIUM LEVEL 131 MEQ/L (136-145); TOTAL PROTEIN 5.3 GM/DL (6.4-8.2)
[2019-12-29] MEDS ORDERED: CALCIUM GLUCONATE 1,000 MG in D5W MINI-BAG PLUS 100 ML IV ONE ×3 (02:00→13:00)
[2019-12-29] MEDS: MORPHINE 2 MG/ML 1ML VIAL (J2270) IV PRN ×3 (02:14→21:00)
[2019-12-29] MEDS ORDERED: POTASSIUM PHOSPHATE INJ 30 MMOL in D5W 500 ML IV ONE (02:30)
[2019-12-29] MEDS ORDERED: VANCOMYCIN HCL IV ONE (03:15)
[2019-12-29] MEDS ORDERED: FLUID PLACE HOLDER IV ONE (03:15)
[2019-12-29 03:57] LABS: NT-PRO BNP 16 PG/ML (<125); TROPONIN I < 0.02 NG/ML (< 0.10)
[2019-12-29] MEDS ORDERED: VANCOMYCIN HCL 1,000 MG, VIAL MATE ADAPTER 1 EACH in D5W 250 ML IV ONE ×2 (04:00→05:00)
--- NOTE | 2019-12-29 04:39 | PHACANCOPD ---
PHARMACY VANCOMYCIN DOSING Pt Demographics Demographics Patient Age:49 , Weight:104.600 , Gender: male Adjusted Body Weight Date: 12/29/19, Adjusted Body Weight: [87] Kg Vancomycin Vancomycin indication: PNEUMONIA Vancomycin Target Ranges: 15-20 mcg/ml Vancomycin Load Y/N: Yes Load Dose Date Time Vancomycin Load Dose: 2GM Date: 12/28 Time: 4:00-5:00 Vancomycin Dose Date: 12/29/19. Current Vancomycin Dose: [1 GM Q8H] Intermittent Dosing?: No Labs Micro Microbiology 12/29/19 Blood Culture, Received Pending 12/29/19 Blood Culture, Received Pending Creatinine Clearance Date:12/29/19. Creatinine Clearance: [>100]. Assessment and Plan Maintaining Current Dose?: Yes Reason for dose change: No Dose Change Pharmacist Note Pharmacist Note Date: 12/29/19. Pharmacist note:49 YOM ADMITTED W/ RESP.INFECTION/PNEUMONIA,ht:71",wt:104.6kg.(abw= 87 kg)SCR:1.02, WTXG=201,MRSA PCR pending..ABX treatment includes Levofloxacin 750mg IV [id number] and Pharmacy dosed Vancomycin. Vancomycin 2 gram loading dose administered 12/28@04/05:00, then will begin 1 gram IV E1pimwe starting@13:00. First trough is scheduled for 12/29@4:00(prior to the 4th dose)- will continue to follow and adjust as necessary. [facility] December 29, 2019 04:39
[2019-12-29] MEDS ORDERED: PILL CUTTER 1 EACH XX PRN (05:00)
--- NOTE | 2019-12-29 05:37 | REP ---
Clinical: Nasogastric tube placement. Comparison: None. Findings: Nasogastric tube courses below left hemidiaphragm in satisfactory position. Opacity of the left mid to lower lung zone is consistent with elevated hemidiaphragm based on recent CT, but superimposed element of effusion and atelectasis cannot be excluded. No pneumothorax. Cardiac silhouette and mediastinum are normal. Skeletal structures are intact. Impression: Nasogastric tube in satisfactory position. Left basilar opacity may represent chronic change with superimposed possible atelectasis and effusion cannot be excluded. Electronically Signed by Elvin Magdaleno MD 12/29/2019 05:28 A
[2019-12-29] MEDS: HEPARIN SOD (PORCINE) 5000UNITS/ML VIAL (J1644 PER 1000UNITS) SC SCH ×3 (06:10→21:00)
[2019-12-29] MEDS: LevoFLOXacin IV 750 MG in IV 1 EA IV SCH (06:10)
[2019-12-29 06:23] LABS: HEMATOCRIT 37.7 % (42.0-52.0); HEMOGLOBIN 12.5 g/dl (13.5-17.5); MEAN CORPUSCULAR HEMOGLOBIN 29.3 pg (27.0-33.0); MEAN CORPUSCULAR HGB CONC 33.2 g/dl (32.0-36.5); MEAN CORPUSCULAR VOLUME 88.5 fl (80.0-96.0); PLATELET COUNT, AUTOMATED 189 10^3/uL (150-450); RED BLOOD COUNT 4.26 10^6/uL (4.30-6.10); WHITE BLOOD COUNT 7.5 10^3/uL (4.0-10.0)
[2019-12-29 06:50] LABS: ATYPICAL LYMPH 2 % (0-5); LYMPHOCYTES 14 % (16-44); MONOCYTES 7 % (0-5); NEUTROPHILS 75 % (28-66); PLATELET ESTIMATE NORMAL (NORMAL)
[2019-12-29 07:12] LABS: ALBUMIN 1.8 GM/DL (3.2-5.2); ALT/SGPT 19 U/L (12-78); BILIRUBIN,TOTAL 1.2 MG/DL (0.2-1.0); BLOOD UREA NITROGEN 11 MG/DL (7-18); CALCIUM LEVEL 5.5 MG/DL (8.5-10.1); CARBON DIOXIDE LEVEL 20 MEQ/L (21-32); CHLORIDE LEVEL 97 MEQ/L (98-107); CREATININE FOR GFR 1.13 MG/DL (0.70-1.30); GLOMERULAR FILTRATION RATE > 60.0 (>56); GLUCOSE, FASTING 342 MG/DL (70-100); MAGNESIUM LEVEL 1.9 MG/DL (1.8-2.4); PHOSPHORUS LEVEL 8.7 MG/DL (2.5-4.9); POTASSIUM SERUM 6.7 MEQ/L (3.5-5.1); SODIUM LEVEL 127 MEQ/L (136-145); TOTAL PROTEIN 4.7 GM/DL (6.4-8.2); TRIGLYCERIDES LEVEL 1865 MG/DL (<150)
[2019-12-29] MEDS ORDERED: DEXTROSE 50% 50 ML SYRINGE IV STA (07:14)
[2019-12-29] MEDS ORDERED: HumuLIN R (REGULAR) INSULIN (NovoLIN R) **100U/ML** PER UNIT IV ONE (07:15)
[2019-12-29 08:00] LABS: HEMATOCRIT 39.4 % (42.0-52.0); HEMOGLOBIN 13.1 g/dl (13.5-17.5); MEAN CORPUSCULAR HEMOGLOBIN 29.2 pg (27.0-33.0); MEAN CORPUSCULAR HGB CONC 33.2 g/dl (32.0-36.5); MEAN CORPUSCULAR VOLUME 87.8 fl (80.0-96.0); PLATELET COUNT, AUTOMATED 201 10^3/uL (150-450); RED BLOOD COUNT 4.49 10^6/uL (4.30-6.10); WHITE BLOOD COUNT 7.9 10^3/uL (4.0-10.0)
[2019-12-29 08:25] LABS: ALBUMIN 1.8 GM/DL (3.2-5.2); ALT/SGPT 21 U/L (12-78); BILIRUBIN,TOTAL 1.2 MG/DL (0.2-1.0); BLOOD UREA NITROGEN 11 MG/DL (7-18); CALCIUM LEVEL 5.6 MG/DL (8.5-10.1); CARBON DIOXIDE LEVEL 21 MEQ/L (21-32); CHLORIDE LEVEL 102 MEQ/L (98-107); CREATININE FOR GFR 1.05 MG/DL (0.70-1.30); GLOMERULAR FILTRATION RATE > 60.0 (>56); GLUCOSE, FASTING 207 MG/DL (70-100); PHOSPHORUS LEVEL 2.4 MG/DL (2.5-4.9); POTASSIUM SERUM 3.8 MEQ/L (3.5-5.1); SODIUM LEVEL 132 MEQ/L (136-145); TOTAL PROTEIN 4.8 GM/DL (6.4-8.2)
[2019-12-29] MEDS: GABAPENTIN 300 MG CAP PO SCH ×2 (09:00→21:01)
[2019-12-29] MEDS: CALCITRIOL 0.25 MCG CAP (S0169) PO SCH (09:00)
[2019-12-29 09:12] LABS: LYMPHOCYTES 11 % (16-44); MONOCYTES 5 % (0-5); NEUTROPHILS 82 % (28-66); PLATELET ESTIMATE NORMAL (NORMAL)
[2019-12-29] MEDS: ATORVASTATIN 20 MG TAB PO SCH (09:54)
[2019-12-29] MEDS: FENOFIBRATE 145 MG TAB (TRICOR) PO SCH (09:54)
[2019-12-29] MEDS: PANTOPRAZOLE 40MG VIAL (C9113 PER 1) IV SCH ×2 (09:54→20:59)
[2019-12-29] MEDS: SIMETHICONE 80 MG CHEW TAB PO SCH ×4 (09:55→21:01)
[2019-12-29 10:05] LABS: TOTAL 25(OH) VITAMIN D 10.7 NG/ML (30.0-100.0)
[2019-12-29 10:06] LABS: PTH INTACT 112.4 PG/ML (18.5-88.0)
[2019-12-29 11:21] LABS: TRIGLYCERIDES LEVEL 1846 MG/DL (<150)
[2019-12-29] MEDS: INSULIN REGULAR IN 0.9 % NACL 100 UNIT in IV 1 EA IV SCH ×2 (11:52)
[2019-12-29 12:50] LABS: HEMATOCRIT 40.7 % (42.0-52.0); HEMOGLOBIN 13.7 g/dl (13.5-17.5); MEAN CORPUSCULAR HEMOGLOBIN 29.8 pg (27.0-33.0); MEAN CORPUSCULAR HGB CONC 33.7 g/dl (32.0-36.5); MEAN CORPUSCULAR VOLUME 88.7 fl (80.0-96.0); PLATELET COUNT, AUTOMATED 211 10^3/uL (150-450); RED BLOOD COUNT 4.59 10^6/uL (4.30-6.10); WHITE BLOOD COUNT 8.2 10^3/uL (4.0-10.0)
[2019-12-29] MEDS: VANCOMYCIN HCL 1,000 MG, VIAL MATE ADAPTER 1 EACH in D5W 250 ML IV SCH ×2 (13:13→21:04)
[2019-12-29] MEDS: D5W/LR 1,000 ML IV SCH (13:13)
[2019-12-29 13:32] LABS: ALBUMIN 1.9 GM/DL (3.2-5.2); ALT/SGPT 14 U/L (12-78); BILIRUBIN,TOTAL 1.2 MG/DL (0.2-1.0); BLOOD UREA NITROGEN 12 MG/DL (7-18); CARBON DIOXIDE LEVEL 21 MEQ/L (21-32); CHLORIDE LEVEL 103 MEQ/L (98-107); CREATININE FOR GFR 0.98 MG/DL (0.70-1.30); GLOMERULAR FILTRATION RATE > 60.0 (>56); GLUCOSE, FASTING 183 MG/DL (70-100); MAGNESIUM LEVEL 1.9 MG/DL (1.8-2.4); PHOSPHORUS LEVEL 1.7 MG/DL (2.5-4.9); POTASSIUM SERUM 3.5 MEQ/L (3.5-5.1); SODIUM LEVEL 133 MEQ/L (136-145); TOTAL PROTEIN 5.2 GM/DL (6.4-8.2)
[2019-12-29 13:44] LABS: ATYPICAL LYMPH 1 % (0-5); LYMPHOCYTES 10 % (16-44); MONOCYTES 5 % (0-5); NEUTROPHILS 83 % (28-66); PLATELET ESTIMATE NORMAL (NORMAL)
[2019-12-29 13:45] LABS: ANISOCYTOSIS 1+
[2019-12-29] MEDS: CALCIUM CARB SUSP 1250MG/5ML UNIT DOSE CUP PO SCH ×2 (15:05→21:00)
[2019-12-29] MEDS ORDERED: VITAMIN D 1,000 INTERNATIONAL UNITS TABLET NG ONE (15:30)
--- NOTE | 2019-12-29 17:30 | CR ---
DATE OF CONSULTATION: 12/29/2019 CHIEF COMPLAINT: Abdominal pain. HISTORY OF PRESENT ILLNESS: Mr. Orlando is a 49-year-old male with a past medical history of diabetes and hyperlipidemia, obstructive sleep apnea (XANDER) on continuous positive airway pressure (CPAP) who presented with complaints of abdominal pain, nausea and vomiting. The patient reported that he was in his usual state of health when he started complaining of severe abdominal pain, nausea and vomiting after having a [employer] breakfast on the day of his admission. He denies any previous history of similar pain. He denied any previous history of pancreatitis. The patient was admitted and was found to have severe hypertriglyceridemia with acute pancreatitis on imaging with no evidence of any gallstones. He was given aggressive fluid hydration for his acute pancreatitis as well as being started on an insulin drip for his hypertriglyceridemia. The patient was also noted during his stay to have electrolyte derangements, including hypocalcemia, hypophosphatemia and hypomagnesemia. The patient has also been intermittently requiring nasal cannula oxygen supplementation during his stay and he states he has continued to have episodes of nausea with retching as well as some persistent abdominal pain, although it has improved with pain medications. Yesterday, the patient was complaining of increasing abdominal distension and fullness as well as some difficulty breathing. He did have intra-abdominal pressure checked yesterday, which were reportedly 13. Overnight, he was having some abdominal pain and he had intra-abdominal pressure check, which was elevated at 22. Surgery was consulted given concern for acute abdominal compartment syndrome. The patient at that time however, had normal lactic acid as well as no significant change in his renal function or in his blood pressure. He was also continued to have unchanged urine output. He clinically did not appear to have significant abdominal compartment syndrome. There was however concern for ileus as he has not had any bowel movement since his admission and he also denies passing any gas. He had nasogastric (NG) tube placed for decompression, which he states did improve his abdominal fullness sensation as well as the difficulty breathing. This morning he states while his abdomen is still distended it is not as tense feeling as it was previously and he states his breathing has also improved. He does occasionally have a cough, although he states it is nonproductive. He denies any fevers and chills. His temperature this morning was 100.2. He does continue to have some nausea and retching. PAST MEDICAL AND SURGICAL HISTORY: 1. GERD. 2. Diverticulosis. 3. Hyperlipidemia. 4. Diabetes. 5. XANDER on CPAP. 6. Hernia repair. 7. Shoulder surgery. SOCIAL HISTORY: Denies a history of tobacco use. No significant alcohol use. FAMILY HISTORY: Mother with history of ovarian cancer. HOME MEDICATIONS: - gabapentin - Jardiance - glimepiride - Vascepa - metformin - omeprazole - cyclobenzaprine as needed - loratadine as needed - naproxen as needed - tramadol as needed ALLERGIES: To BERRIES, CEPHALOSPORINS, PENICILLIN, BEE VENOM PROTEIN, CABEZAS, and LATEX. PHYSICAL EXAMINATION: Maximum temperature (Tmax) 100.2, T-current 97.9, pulse 109, respirations 21, blood pressure 128/64, oxygen saturations 93% on room air. Ins 2.5 liters, out 2.2 liters, net positive 1.3 liters. General: The patient is awake and alert, lying in bed, in no acute respiratory distress. He does have some abdominal discomfort as well as some nausea and retching. He is awake and alert and oriented times three. HEENT: Normocephalic, atraumatic. Mucous membranes are moist. Neck is supple. Trachea midline. There is no palpable cervical adenopathy. Cardiovascular: Is tachycardic. Normal S1, S2. Regular rate and rhythm with no murmurs appreciated. Lungs: There are some diminished breath sounds at the bases with few occasional crackles but no significant wheezing or rhonchi. Abdomen: Is distended with some epigastric tenderness noted to palpation. There is diminished bowel sounds. Extremities: There is no significant lower extremity edema bilaterally. LABORATORY DATA: WBC 7.9. Hemoglobin is 13.1. Platelets are 201. Chemistry: Sodium is 132, potassium 3.8, chloride is 102, bicarbonate is 21, BUN is 11, creatinine is 1.05, glucose 207. Lactic acid overnight was 0.4. Calcium 5.6. Phos 2.0. Total bilirubin 1.2. AST, ALT 22 and 21. Alkaline phosphatase 51. Albumin is 1.8. Triglyceride is 1846. IMAGING: Chest x-ray this morning shows the NG tube coursing below left diaphragm. There is elevated left hemidiaphragm with some small left lower lobe atelectasis and effusion. CT abdomen and pelvis increasing generalized inflammatory changes with moderate amount of free fluid consistent with pancreatitis, which appears worse when compared to the previous CT on 12/26/2019. There is no drainable collection or abscess or pseudocyst. Pancrease does not show evidence of ischemia or necrosis. There are bilateral lower lobe atelectasis versus consolidation left greater than right with a small left pleural effusion. There is mild fatty infiltration of the liver. There is mildly prominent loops of small and large bowel no evidence of obstruction. ASSESSMENT AND PLAN: Mr. Orlando is a 49-year-old male with a history of diabetes, obstructive sleep apnea on CPAP, and hyperlipidemia who presented with acute pancreatitis secondary to hypertriglyceridemia. He was admitted to the intensive care unit (ICU) and given aggressive IV fluid hydration for his acute pancreatitis as well as insulin drip for his hypertriglyceridemia. The patient has been having some increased abdominal distension and there was concern well overnight of possible abdominal compartment syndrome. Surgery was consulted and the patient did not have any evidence of end-organ damage and his abdominal pressures were checked when he was in pain. He was not thought to have any significant abdominal compartment syndrome. His repeat abdominal pressures today were 13 again. 1. Acute pancreatitis secondary to hypertriglyceridemia with increasing inflammation and some tissue edema. 2. Acute kidney injury. 3. Electrolyte abnormalities with persistent hypocalcemia and hypophosphatemia 4. History of obstructive sleep apnea on CPAP. 5. Acute hypoxemic respiratory failure. 6. Ileus. 7. Lower lobe consolidation/ atelectasis. PLAN: The patient has been more than 48 hours since his admission for his acute pancreatitis. He has been adequately fluid resuscitated and so, he does not need to continue aggressive IV fluid hydration. His fluids were decreased yesterday as well due to some concern for possible abdominal compartment syndrome and edema. - Would continue with fluids while he is on insulin drip and nothing by mouth. Will change him D5 lactated Ringer (LR) instead given his hypokalemia that he has required repletion for as well as for his mild acidosis with low bicarb would continue with a low rate however of D5 to maintain sugar while on the insulin drip. - Will continue with insulin drip until triglycerides are less than 500. - Continue with pain control and antiemetics. - The patient does have a Benitez in and will continue to measure intra-abdominal pressures every 12 hours while he is at rest and not in any pain. Appreciate surgery consult and recommendations. - The patient had an NG tube placed for decompression as there was concern for ileus. He likely does have an ileus given his significant electrolyte abnormalities and so, we continue NG tube to low wall intermittent suction for decompression. He also has not been passing any gas or having any bowel movements. Can consider a bowel regimen as well. - Would continue aggressive repletion for his electrolytes. He will be getting low amounts of potassium with LR and will continue repletion with IV calcium for his hypocalcemia. He did also has evidence of vitamin D deficiency, which is likely contributing to his persistent hypocalcemia. Would start him on calcitriol for supplementation when we are able to get liquid calcitriol as he is refusing any pills at this time. - Will continue with supplementation for his hypophosphatemia. - Will continue to monitor renal function and ins and outs via Benitez catheter. - Will continue with nasal cannula oxygen supplementation to maintain an oxygen saturation above 90%. The patient would benefit from incentive spirometer as he likely does have a component of atelectasis contributing to his hypoxia. He also has sleep apnea, which he has not been on his CPAP during this admission and he likely does have desaturations at night secondary to his sleep apnea. - The patient did have some evidence of consolidation on his CT abdomen, pelvis. He had a low-grade temperature and so, he was started on broad-spectrum antibiotics. Can continue with broad-spectrum antibiotics for now, however, would likely de-escalate vancomycin as his MRSA screen was negative and continue with Levaquin. Deep venous thrombosis (DVT) prophylaxis, heparin CODE STATUS: Full code Total critical care time spent not including any procedures approximately 1 hour and 15 minutes. MTDD
[2019-12-29 18:01] LABS: HEMATOCRIT 40.9 % (42.0-52.0); HEMOGLOBIN 13.7 g/dl (13.5-17.5); MEAN CORPUSCULAR HEMOGLOBIN 29.5 pg (27.0-33.0); MEAN CORPUSCULAR HGB CONC 33.5 g/dl (32.0-36.5); MEAN CORPUSCULAR VOLUME 88.1 fl (80.0-96.0); PLATELET COUNT, AUTOMATED 225 10^3/uL (150-450); RED BLOOD COUNT 4.64 10^6/uL (4.30-6.10); WHITE BLOOD COUNT 8.7 10^3/uL (4.0-10.0)
--- NOTE | 2019-12-29 18:47 | ECGEPIP ---
[facility] Test Date: 2019-12-29 Pat Name: NICOL ALFARO Department: Room: [place] [address] Gender: Male [employer]ge: LENIN : 1970 Requested By: Noemí Trammell Order Number: [id number] Reading MD: Saman Randolph Measurements Intervals [place] Rate: 111 P: 41 NV: 131 QRS: 3 QRSD: 110 T: 38 QT: 326 QTc: 445 Interpretive Statements Sinus tachycardia Somewhat low voltages Inferior Q waves rule out prior IWMI. Increased heart rate from 12/26/19. Electronically Signed on 12-29-2019 18:47:42 EDT by Saman Randolph
[2019-12-29 18:50] LABS: ALT/SGPT 25 U/L (12-78); BILIRUBIN,TOTAL 1.4 MG/DL (0.2-1.0); BLOOD UREA NITROGEN 12 MG/DL (7-18); CALCIUM LEVEL 6.2 MG/DL (8.5-10.1); CARBON DIOXIDE LEVEL 22 MEQ/L (21-32); CHLORIDE LEVEL 102 MEQ/L (98-107); CREATININE FOR GFR 1.11 MG/DL (0.70-1.30); GLOMERULAR FILTRATION RATE > 60.0 (>56); GLUCOSE, FASTING 192 MG/DL (70-100); PHOSPHORUS LEVEL 1.5 MG/DL (2.5-4.9); POTASSIUM SERUM 3.7 MEQ/L (3.5-5.1); SODIUM LEVEL 132 MEQ/L (136-145); TOTAL PROTEIN 5.6 GM/DL (6.4-8.2)
[2019-12-29 19:13] LABS: ANISOCYTOSIS 1+; LYMPHOCYTES 7 % (16-44); METAMYELOCYTES 1 % (0-0); MONOCYTES 4 % (0-5); MYELOCYTES 3 % (0-0); NEUTROPHILS 61 % (28-66); TEAR DROP CELLS 1+
[2019-12-29 19:14] LABS: PLATELET ESTIMATE NORMAL (NORMAL)
--- NOTE | 2019-12-29 19:43 | CR ---
DATE OF CONSULTATION: 12/29/2019 I was called to see the patient for elevated abdominal compartment pressures appreciated about 3 o'clock this morning, and the patient was having some pain and discomfort in his abdomen. Abdominal compartment pressures were performed and revealed compartment pressures of 22. I was asked to see him for evaluation. He has been admitted with pancreatitis and some evidence of worsening pancreatitis on CT scan, although I am not convinced that they are seeing true pancreatitis, whether more that they are actually seeing diffuse inflammatory changes throughout the abdomen. In any case, the patient has been given aggressive fluid resuscitation and had significant high urine outputs throughout the day. They have dropped back his IV fluid rate recently, and I was asked to see him for evaluation. He is sitting up in bed, feeling a lot of pressure on his abdomen but he has not intubated, he is not sedated, he is not paralyzed. He has some minimal shortness of breath when he is talking in long sentences, but not when he has shorter sentences, and does not appear to be significantly dyspneic. His past medical history is significant for a history of diabetes mellitus, a history of gastroesophageal reflux, history of peripheral neuropathy, history of irritable bowels, history of environmental allergies. Medications include Jardiance, gabapentin, glimepiride, Vascepa, metformin, omeprazole, as needed Bentyl, loratadine Naprosyn and tramadol. PHYSICAL EXAM: Reveals a 49-year-old male who looks stated age. HEENT: Reveals an atraumatic, normocephalic head with extraocular movements intact. Pupils are equal and reactive to light. Sclerae are nonicteric. Oropharynx is clear without exudate or abnormality. Neck is supple without adenopathy. Lungs are diminished bilaterally, although clear without crackles, wheezes or rhonchi. Heart is regular. Abdomen is tensely distended, tympanitic throughout without significant guarding or rebound but definitely uncomfortable with palpation. Extremities: Warm, well perfused. IMPRESSION AND PLAN: The patient has an elevated abdominal compartment syndrome. However, this may be because he was having increasing pain and as one of the etiologies, it is reasonable at this time to evaluate him for his discomfort and see if we cannot decompress his abdomen in any way we see fit. At this point, he has some significant typany, and with his x-rays, he does have some air throughout his colon and some mildly dilated fluid-filled small bowel consistent with a possible developing ileus. But at this point, placing a nasogastric (NG) tube is reasonable. He states he has been having a little bit more reflux since starting this episode of pancreatitis. Has no evidence of pancreatic necrosis on his CT scan and thus will put the NG tube in. Obviously whether we can drain some fluid, most of his fluid seems to be in the pararenal space in the retroperitoneum, and there is a little bit of fluid in the pelvis but not a significant amount. I am not convinced that draining this fluid in his pelvis will create a decrease in his abdominal pressure. However, also attempting to decrease pressure with intubation, sedation and paralytics is another option available for him. I have discussed with him that first we will do nonoperative interventions to try to decompress him as much as possible. And if necessary, operative intervention we discussed with opening up his abdomen with delayed closure to allow the abdominal pressures to decrease. However, reviewing this with him, we discussed specifically the fact that we ae not seeing any other evidence of end-organ ischemia or dysfunction and thus it is reasonable at this time to watch him closely to see if we can decrease his IV fluids and see if his own urine output offsets the amount of fluid on board and see if that does not decrease his abdominal pressure, place an NG tube to lower intermittent suction and see if that makes a difference (this was placed and the patient states that he immediately felt better with decreasing discomfort and pressure in his abdomen and overall feels better with this). Otherwise, we will continue to see how he does over the ensuing hours/day.
[2019-12-30] VITALS (8 sets, daily range): BP systolic 113–146; BP diastolic 58–85
[2019-12-30 00:03] LABS: MEAN CORPUSCULAR HGB CONC 34.2 g/dl (32.0-36.5); MEAN CORPUSCULAR VOLUME 87.6 fl (80.0-96.0); PLATELET COUNT, AUTOMATED 221 10^3/uL (150-450); RED BLOOD COUNT 4.34 10^6/uL (4.30-6.10); WHITE BLOOD COUNT 7.9 10^3/uL (4.0-10.0)
[2019-12-30 00:50] LABS: ALBUMIN 1.9 GM/DL (3.2-5.2); BILIRUBIN,TOTAL 1.1 MG/DL (0.2-1.0); BLOOD UREA NITROGEN 11 MG/DL (7-18); CALCIUM LEVEL 6.2 MG/DL (8.5-10.1); CARBON DIOXIDE LEVEL 21 MEQ/L (21-32); CHLORIDE LEVEL 102 MEQ/L (98-107); CREATININE FOR GFR 0.99 MG/DL (0.70-1.30); GLOMERULAR FILTRATION RATE > 60.0 (>56); GLUCOSE, FASTING 203 MG/DL (70-100); PHOSPHORUS LEVEL 1.5 MG/DL (2.5-4.9); POTASSIUM SERUM 3.1 MEQ/L (3.5-5.1); SODIUM LEVEL 132 MEQ/L (136-145); TOTAL PROTEIN 5.3 GM/DL (6.4-8.2)
[2019-12-30 01:02] LABS: EOSINOPHILS 1 % (0-3); LYMPHOCYTES 9 % (16-44); MONOCYTES 11 % (0-5); NEUTROPHILS 77 % (28-66); PLATELET CLUMPS SMALL AMT; PLATELET ESTIMATE NORMAL (NORMAL)
[2019-12-30] MEDS ORDERED: POTASSIUM CHLORIDE 10% LIQ 20 MEQ/15 ML UDC NG ONE (01:15)
[2019-12-30] MEDS: PROMETHAZINE INJ 25 MG/ML VIAL (J2550) IV PRN (01:17)
[2019-12-30] MEDS: MORPHINE 2 MG/ML 1ML VIAL (J2270) IV PRN ×7 (01:18→20:38)
[2019-12-30 01:20] LABS: ALT/SGPT 12 IU/L (0-32)
[2019-12-30] MEDS: INSULIN IV RATE CHANGE DOCUMENTATION ML/HR XX SCH ×7 (01:23→20:16)
[2019-12-30] MEDS: LACTOBACILLUS ACIDOPHILUS CAP (BACID) PO SCH ×2 (04:30→08:09)
[2019-12-30 04:35] LABS: HEMATOCRIT 39.4 % (42.0-52.0); HEMOGLOBIN 13.1 g/dl (13.5-17.5); MEAN CORPUSCULAR HEMOGLOBIN 29.1 pg (27.0-33.0); MEAN CORPUSCULAR HGB CONC 33.2 g/dl (32.0-36.5); MEAN CORPUSCULAR VOLUME 87.6 fl (80.0-96.0); PLATELET COUNT, AUTOMATED 224 10^3/uL (150-450); WHITE BLOOD COUNT 8.4 10^3/uL (4.0-10.0)
[2019-12-30 05:06] LABS: ALT/SGPT 14 U/L (12-78); BILIRUBIN,TOTAL 1.2 MG/DL (0.2-1.0); BLOOD UREA NITROGEN 11 MG/DL (7-18); CALCIUM LEVEL 6.5 MG/DL (8.5-10.1); CARBON DIOXIDE LEVEL 22 MEQ/L (21-32); CHLORIDE LEVEL 102 MEQ/L (98-107); CREATININE FOR GFR 1.11 MG/DL (0.70-1.30); GLOMERULAR FILTRATION RATE > 60.0 (>56); GLUCOSE, FASTING 197 MG/DL (70-100); MAGNESIUM LEVEL 2.2 MG/DL (1.8-2.4); PHOSPHORUS LEVEL 1.4 MG/DL (2.5-4.9); POTASSIUM SERUM 3.5 MEQ/L (3.5-5.1); SODIUM LEVEL 133 MEQ/L (136-145); TOTAL PROTEIN 5.5 GM/DL (6.4-8.2)
[2019-12-30 05:47] LABS: EOSINOPHILS 1 % (0-3); LYMPHOCYTES 10 % (16-44); MONOCYTES 10 % (0-5); NEUTROPHILS 79 % (28-66)
[2019-12-30 05:48] LABS: PLATELET ESTIMATE NORMAL (NORMAL)
[2019-12-30 05:49] LABS: TOXIC VACUOLATION 1+
[2019-12-30] MEDS: LevoFLOXacin IV 750 MG in IV 1 EA IV SCH (05:58)
[2019-12-30] MEDS: HEPARIN SOD (PORCINE) 5000UNITS/ML VIAL (J1644 PER 1000UNITS) SC SCH ×3 (05:59→21:36)
[2019-12-30 07:29] LABS: TRIGLYCERIDES LEVEL 1573 MG/DL (<150)
[2019-12-30] MEDS: PANTOPRAZOLE 40MG VIAL (C9113 PER 1) IV SCH ×2 (08:09→21:36)
[2019-12-30] MEDS: CALCIUM CARB SUSP 1250MG/5ML UNIT DOSE CUP PO SCH ×3 (08:09→21:36)
[2019-12-30] MEDS: ATORVASTATIN 20 MG TAB PO SCH (08:10)
[2019-12-30] MEDS: FENOFIBRATE 145 MG TAB (TRICOR) PO SCH (08:10)
[2019-12-30] MEDS: SIMETHICONE 80 MG CHEW TAB PO SCH ×4 (08:10→21:36)
[2019-12-30] MEDS: GABAPENTIN 300 MG CAP PO SCH ×2 (09:00→21:36)
[2019-12-30] MEDS: CALCITRIOL 0.25 MCG CAP (S0169) PO SCH (09:00)
[2019-12-30 10:21] LABS: CLOSTRIDIUM DIFFICILE PCR NEGATIVE (NEGATIVE)
[2019-12-30] MEDS: INSULIN REGULAR IN 0.9 % NACL 100 UNIT in IV 1 EA IV SCH ×2 (12:03)
--- NOTE | 2019-12-30 12:04 | IPNPDOC ---
Text Note Date of Service The patient was seen on 12/29/19. NOTE Subjective: Patient seen and examined at bedside. Complains of abdominal discomfort. Overnight, concerns for increased abdominal pressure, surgery consulted for further evaluation. Patient notes improvement with his abdominal pain on placement of NG tube. Objective: Vitals - see below General: NAD, lying comfortably in bed HEENT: NC/AT, EOMI Lungs: CTA B/L Heart: +S1S2, tachycardic, -M/R/G Abd: distended, +BS, tender Ext: trace edema A/P: Patient is a 49-year-old male with a PMHx of NIDDM2, DLP, who presented to the hospital with complaints of abdominal discomfort associated with nausea and vomiting after he had eaten breakfast at [employer]. On arrival to ER, lab work was consistent with acute pancreatitis associated with hypertriglyceridemia. Patient was admitted to the hospitalist service for further evaluation and treatment #Acute pancreatitis - likely 2/2 Hypertriglyceridemia - Clinically reports abdominal discomfort associated with nausea. No episodes of vomiting - Abdominal tenderness is still appreciated - Hemodynamically stable and afebrile - Triglyceride levels remain elevated; however, are trending down significantly - CT abdomen / pelvis 12/26: 1. Acute pancreatitis as described above (peripancreatic inflammatory stranding and small amount of fluid extends along left anterior pararenal space along with mild edematous appearance to the pancreatic body/tail. No drainable collection/abscess or pseudocyst) - c/w insulin drip and dextrose base fluids - c/w pain control and anti-emetics - Will insert Benitez catheter for strict ins and outs and measurement of intra- bladder pressures #XANDER - patient has indicated he does have a history of XANDER and uses CPAP - family to bring in machine #increased abdominal pressure/abdominal pain -surgery consulted - assistance appreciated #electrolyte disturbance - continue to replete and follow - consider albumin to improve hypocalcemia - this morning hyperkalemia appears to be lab error #NIDDM2 - c/w insulin drip while in ICU (re: Hypertriglyceridemia) - Will transition to insulin sliding scale once triglyceride levels optimized #DLP - Elevated triglyceride levels - Will start Fenofibrate when off insulin drip - c/w Atorvastatin #Neuropathy - c/w Gabapentin #GERD - c/w Omeprazole #DVT prophylaxis - c/w Heparin Disposition: - Awaiting triglyceride levels to be less than 500 before discontinuing insulin drip - 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
[2019-12-30] MEDS: D5W/LR 1,000 ML IV SCH (13:00)
[2019-12-30] MEDS ORDERED: LIDOCAINE 1% MDV 20ML VIAL As Ordered ONE ×2 (13:31→16:41)
--- NOTE | 2019-12-30 13:46 | IPNPDOC ---
Text Note Date of Service The patient was seen on 12/30/19. NOTE Subjective: Patient seen and examined at bedside. Feeling better today. No acute overnight events reported. Anxious to remove NG tube and advance diet. Objective: Vitals - see below General: NAD, lying comfortably in bed HEENT: NC/AT, EOMI Lungs: CTA B/L Heart: +S1S2, tachycardic, -M/R/G Abd: distended, +BS, tender Ext: trace edema A/P: Patient is a 49-year-old male with a PMHx of NIDDM2, DLP, who presented to the hospital with complaints of abdominal discomfort associated with nausea and vomiting after he had eaten breakfast at [employer]. On arrival to ER, lab work was consistent with acute pancreatitis associated with hypertriglyceridemia. Patient was admitted to the hospitalist service for further evaluation and treatment #Acute pancreatitis - likely 2/2 Hypertriglyceridemia - Abdominal tenderness improving - Hemodynamically stable and afebrile - Triglyceride levels slowly trending down - insulin gtt increased - appreciate critical care assistance - CT abdomen / pelvis 12/26: 1. Acute pancreatitis as described above ( peripancreatic inflammatory stranding and small amount of fluid extends along left anterior pararenal space along with mild edematous appearance to the pancreatic body/tail. No drainable collection/abscess or pseudocyst) - c/w pain control and anti-emetics #XANDER - patient has indicated he does have a history of XANDER and uses CPAP - family to bring in machine #increased abdominal pressure/abdominal pain -surgery consulted - assistance appreciated - appears to have stabilized - considering removal of NG tube- minimal output #electrolyte disturbance - continue to replete and follow - should improve with TPN #nutrition - PICC line placement - start TPN with no lipids #NIDDM2 - c/w insulin drip while in ICU (re: Hypertriglyceridemia) - Will transition to insulin sliding scale once triglyceride levels optimized #DLP - Elevated triglyceride levels - Will start Fenofibrate when off insulin drip - c/w Atorvastatin #Neuropathy - c/w Gabapentin #GERD - c/w Omeprazole #DVT prophylaxis - c/w Heparin VS,Fishbone, I+O VS, Fishbone, I+O Laboratory Tests 12/29/19 17:46 12/29/19 23:52 12/30/19 04:07 Vital Signs Date Time Temp Pulse Resp B/P (MAP) Pulse Ox O2 Delivery O2 Flow Rate FiO2 12/30/19 13:08 22 91 Room Air 12/30/19 12:00 97.9 104 116/58 (77) 12/30/19 02:00 3.0 I&O- Last 24 Hours up to 6 AM 12/30/19 06:00 Intake Total 1916 ml Output Total 2095 ml Balance -179 ml BART HUTCHINSON MD December 30, 2019 13:46
[2019-12-30] MEDS: CALCITRIOL 1 MCG/ML PO SCH (13:57)
[2019-12-30] MEDS ORDERED: POTASSIUM PHOSPHATE INJ 18 MMOL in D5W 250 ML IV ONE (15:00)
[2019-12-30] MEDS: CEPACOL LOZENGE PO PRN ×3 (15:21→20:37)
[2019-12-30] MEDS ORDERED: CHLORASEPTIC SPRAY MT PRN (16:00)
[2019-12-30] MEDS ORDERED: MULTIVITAMIN -ADULT INJECTION 10 ML, CR/CU/SE/MN/ZN INJ 1 ML in AMINO AC/ELECTROLYTE/DE... IV SCH (18:00)
--- NOTE | 2019-12-30 22:18 | CCN ---
DATE: 12/30/2019 The patient was seen and examined this morning during bedside rounds. He continues to report that his abdominal distension and discomfort is improving. He did have a bowel movement yesterday as well as passing large amounts of gas. He did have somewhat of diarrhea and so he did have C. difficile testing sent which was negative. This morning the patient states he does continue to have some occasional nausea and abdominal pain, although this is improving. He does have some slight difficulty breathing as well, although this has also improved. He did not have a fever overnight although his T-max was 100. He remains on a insulin drip for his hypertriglyceridemia. PHYSICAL EXAMINATION: Vital Signs:: T-max 100, pulse is 103, respirations 18, blood pressure 117/58, oxygen saturation 92% on room air. Intake 2.5 liters, output 1.5 liters. General: The patient is lying in bed and does not appear to be acute distress. Is speaking in complete sentences and is not using any accessory muscles for respiration. HEENT: Normocephalic, atraumatic. Pupils are reactive to light bilaterally. Mucous membranes are moist. The patient has an NG tube in place. Neck is supple. Trachea is midline. There is no palpable cervical adenopathy. Cardiovascular: Tachycardiac, normal S1, S2, regular rate and rhythm. No murmurs appreciated. Lungs: Diminished breath sounds with crackles bilaterally, more at bases. Abdomen: Is mildly distended, although appears softer today and less tense. There is some epigastric tenderness to palpation. Extremities: There is no significant lower extremity edema bilaterally. LABORATORY DATA: WBC 8.4, hemoglobin 13.1, platelets are 224. Chemistry: Sodium is 133, potassium 3.5, chloride 102, bicarbonate 22, BUN 11, creatinine 1.11, glucose is 197, calcium 6.5, phosphorous 1.4, total bilirubin 1.2, triglycerides 1573, albumin is 2.0. ASSESSMENT: Mr. Orlando is a 49-year-old male with a history of diabetes, XANDER on C-PAP and hyperlipidemia who presented with acute pancreatitis secondary to hypertriglyceridemia. The patient was admitted to the ICU and given aggressive IV fluid hydration for his acute pancreatitis as well as an insulin drip for his hypertriglyceridemia. The patient was also noted to have increased abdominal distension with concern initially for abdominal compartment syndrome. Surgery was consulted and he had an NG tube placed with significant improvement in his symptoms. The patient likely with an ileus secondary to his persistent electrolyte abnormalities. 1. Acute pancreatitis secondary to hypertriglyceridemia. 2. Acute kidney injury. 3. Electrolyte abnormalities with persistent hypocalcemia and hypophosphatemia as well as a vitamin D deficiency. 4. History of XANDER on C-PAP. 5. Acute hypoxia with respiratory failure likely secondary to atelectasis. 6. Ileus. 7. Possible pneumonia versus atelectasis in the lower lobes. PLAN: - The patient is continued on insulin drip for his hypertriglyceridemia which is slowly trending down. He is on fluids with D5 LR given his insulin drip. Given his hypoalbuminemia however and as the patient has been nothing by mouth since admission there is a plan for placement of a PICC line and initiation of TPN. He will be started on TPN with no lipids. The patient should be continued with fingerstick glucose checks with more frequent monitoring once being on the TPN every 1 hour to monitor for potential hypoglycemia while on the insulin drip. He may need additional supplementation of dextrose containing fluids such as D10 which can be given through his peripherally inserted central line. - Continue with calcium repletion. The patient has a vitamin D deficiency and he will need supplementation of vitamin D to help correct his persistent hypocalcemia. He is started on calcitriol as we do have the liquid formulation at this time. - The patient's NG tube is being continued to suction however, he did have a bowel movement. Would follow up surgery recommendations about potentially discontinuing the NG tube. - Continue supplementation of his other electrolytes including hypophosphatemia and potassium as needed. - Continue pain control and antiemetics. - Patient's last intra-abdominal pressure was 13,. Would continue with clinical exam and can measure his intra-abdominal pressures as needed at this time. - Continue the patient on nasal cannula oxygen supplementation. He should continue aggressive use of his incentive spirometer and have him out of bed to chair. I suspect some of his hypoxia is due to atelectasis. He does also have a history of sleep apnea and so he will desaturate at nighttime. - The patient is continued on antibiotics for possible pneumonia given his CT findings although some of this may also be due to atelectasis. He did have a low grade temperature still and so will continue to monitor and consider checking procalcitonin for de-escalation. DVT prophylaxis. Heparin. Code status. Full code. Total critical care time spent not including procedures approximately 35 minutes. MTDD
[2019-12-31] VITALS (8 sets, daily range): BP systolic 125–149; BP diastolic 59–71
[2019-12-31] MEDS: INSULIN IV RATE CHANGE DOCUMENTATION ML/HR XX SCH ×8 (00:17→22:07)
[2019-12-31] MEDS: CEPACOL LOZENGE PO PRN (00:58)
[2019-12-31] MEDS: MORPHINE 2 MG/ML 1ML VIAL (J2270) IV PRN ×5 (00:59→23:00)
[2019-12-31] MEDS: INSULIN REGULAR IN 0.9 % NACL 100 UNIT in IV 1 EA IV SCH ×6 (01:58→16:19)
[2019-12-31 05:39] LABS: BLOOD UREA NITROGEN 10 MG/DL (7-18); CALCIUM LEVEL 7.2 MG/DL (8.5-10.1); CARBON DIOXIDE LEVEL 25 MEQ/L (21-32); CHLORIDE LEVEL 103 MEQ/L (98-107); CREATININE FOR GFR 0.84 MG/DL (0.70-1.30); GLOMERULAR FILTRATION RATE > 60.0 (>56); GLUCOSE, FASTING 199 MG/DL (70-100); POTASSIUM SERUM 3.1 MEQ/L (3.5-5.1); SODIUM LEVEL 136 MEQ/L (136-145); TRIGLYCERIDES LEVEL 1273 MG/DL (<150)
[2019-12-31] MEDS: HEPARIN SOD (PORCINE) 5000UNITS/ML VIAL (J1644 PER 1000UNITS) SC SCH ×3 (06:07→21:59)
[2019-12-31] MEDS: LevoFLOXacin IV 750 MG in IV 1 EA IV SCH (06:07)
[2019-12-31 08:10] LABS: MAGNESIUM LEVEL 2.4 MG/DL (1.8-2.4); PHOSPHORUS LEVEL 1.6 MG/DL (2.5-4.9)
[2019-12-31] MEDS: LACTOBACILLUS ACIDOPHILUS CAP (BACID) PO SCH (09:17)
[2019-12-31] MEDS: GABAPENTIN 300 MG CAP PO SCH ×2 (09:17→20:05)
[2019-12-31] MEDS: SIMETHICONE 80 MG CHEW TAB PO SCH ×4 (09:17→20:05)
[2019-12-31] MEDS: FENOFIBRATE 145 MG TAB (TRICOR) PO SCH (09:17)
[2019-12-31] MEDS: PANTOPRAZOLE 40MG VIAL (C9113 PER 1) IV SCH ×2 (09:17→20:05)
[2019-12-31] MEDS: CALCIUM CARB SUSP 1250MG/5ML UNIT DOSE CUP PO SCH ×3 (09:17→20:05)
[2019-12-31] MEDS: ATORVASTATIN 20 MG TAB PO SCH (09:18)
[2019-12-31] MEDS: CALCITRIOL 1 MCG/ML PO SCH (09:18)
--- NOTE | 2019-12-31 11:15 | REP ---
Procedure: PICC line insertion with Bj The procedure was performed under the direct supervision of Dr. Steele. The risks and benefits of the procedure were explained to the patient and informed consent was obtained. The left basilic vein was localized using ultrasound guidance. The skin was prepped and draped in a sterile fashion. 2% lidocaine was used as a local anesthetic. Using ultrasound guidance the basilic vein was cannulated and a 0.018 guidewire was inserted and advanced to the SVC using fluoroscopic guidance. The needle was removed and a 5.5 Egyptian dilator and peel-away sheath was inserted over the guide wire. A 5.5 Egyptian dual lumen catheter was cut to length of 50 cm. The dilator was removed and the catheter was inserted over the guide wire with the tip ending in the SVC. The peel-away sheath was removed and the catheter was flushed with heparinized saline as per Hospital protocol. The catheter was affixed to the skin and a sterile dressing was applied. The patient tolerated the procedure well and there were no immediate complications. 0.3 minutes of fluoro time was utilized for this procedure. Electronically Signed by VITA Mitchell 12/30/2019 05:22 P Electronically Signed by Doyle Steele MD 12/31/2019 11:05 A
--- NOTE | 2019-12-31 13:17 | IPN ---
DATE: 12/30/2019 The patient has made some good progress clinically. He looks a lot better than he was. He has not had any nausea. His nasogastric (NG) tube was removed just a little bit ago and he has had some small bowel movements. States mostly these are liquid bowel movements. He still feels full but otherwise feeling better than he was beforehand. Not complaining of any shortness of breath. His vitals have been stable overnight. His intakes and outputs have been looking good with good stool output. Good urine output. Has picked up nicely. However, he still has significantly elevated triglycerides. His abdomen is softly distended, but distended enough that with palpation it causes discomfort, but it is not so much that the abdomen is tender itself. Otherwise, he seems to be making some good progress from my standpoint and he is looking as though he is resolving his ileus. I would, given his overall distension and his current issues keep him nothing by mouth overnight except sips and chips of water. If he does well with this start some clear liquids tomorrow morning, and I anticipate he should be able to progress his diet to a low-fat diet over the ensuing 24 hours after that, but lets see how he does overnight. If he does well with more bowel movements and less distension, then we will get him on some clear liquids in the morning.
[2019-12-31] MEDS ORDERED: KCL 20MEQ IN 100ML SWI (KRUN) 20 MEQ in IV 1 EA IV ONE ×2 (15:00)
--- NOTE | 2019-12-31 15:15 | CCN ---
DATE: 12/31/2019 The patient is seen and examined this morning during bedside rounds. The patient's nasogastric (NG) tube was removed yesterday. He is still having some bowel movements as well as passing gas. He had a peripherally inserted central catheter (PICC) line placed and he was started on total parenteral nutrition (TPN). The patient continues to have some abdominal discomfort although his abdominal distension, nausea and pain is slowly improving. He did not have any fevers overnight. PHYSICAL EXAMINATION: Vital Signs: Temperature 96.8, pulse 88, respirations 20, blood pressure 149/71, oxygen saturation 95% on 2 liters nasal cannula. Ins 1.6 liters, out 2.8 liters. LABORATORY DATA: WBC 8.4, hemoglobin 13.1, platelets are 229. Chemistry: Sodium is 136, potassium 3.1, chloride is 102, bicarbonate is 25, BUN 10, creatinine 0.84, glucose is 199, calcium 7.2, phosphorus 1.6, magnesium 2.4, triglycerides 1273. ASSESSMENT/PLAN: Mr. Orlando is a 49-year-old male with history of diabetes, obstructive sleep apnea (XANDER) on continuous positive airway pressure (CPAP), and hyperlipidemia who presented with acute pancreatitis secondary to hypertriglyceridemia. The patient was admitted the intensive care unit and was given aggressive IV fluid hydration for his acute pancreatitis as well as being started on an insulin drip for his hypertriglyceridemia. There was some concern for increased abdominal distension and possible abdominal compartment syndrome as a complication from his acute pancreatitis. Surgery was consulted and he had an NG tube placed with improvement in his symptoms. The patient was thought to have an ileus secondary to his persistent electrolyte abnormalities. 1. Acute pancreatitis secondary to hypertriglyceridemia. 2. Acute kidney injury. 3. Persistent electrolyte abnormalities with hypocalcemia, hypophosphatemia, as well as vitamin D deficiency and hypokalemia. 4. History of XANDER on CPAP. 5. Acute hypoxemic respiratory failure likely secondary to atelectasis with a possible component of fluid overload. 6. Ileus. 7. Possible pneumonia versus atelectasis in the lower lobes. PLAN: - Patient is continued on his insulin drip for his hypertriglyceridemia, which is slowly trending down. He was started on TPN yesterday via a PICC line and his dextrose containing fluids were discontinued. The patient will need to continued frequent fingerstick glucose checks with monitoring while on insulin drip with the TPN and additional supplemental dextrose containing fluids as needed. - Continue with oral calcium repletion and with calcitriol for his vitamin D. The patient's persistent hypocalcemia was likely in the setting of the untreated vitamin D deficiency preventing adequate correction. - The patient continues to have hypophosphatemia and hypokalemia. Will replete and continue to monitor and replete as needed - The patient's NG tube was removed. Appreciate surgery recommendations. The patient was started on ice chips and hopefully can be advanced tomorrow as per surgery. - Continue with pain control and antiemetics. - Continue the patient on nasal cannula supplementation and wean off as tolerated. Continue incentive spirometer and encourage him to get out of bed to chair. He does have history of XANDER, so some of his desaturation may be due to his XANDER not on CPAP given his complaints of abdominal distension and with the ileus and vomiting. Some of it is also likely due to atelectasis. - The patient was started on Levaquin for possible pneumonia given the CT findings although suspect these are likely due to atelectasis. He did have a low grade temperature, although this may also be due to his acute pancreatitis. Would consider checking a procalcitonin to carpenter helper maintenance in his de-escalation of antibiotics. Deep venous thrombosis (DVT) prophylax, heparin. CODE STATUS: FULL CODE. Total critical care time spent not including procedures approximately 35 minutes. Please not hesitate to call if any further questions or concerns.
[2019-12-31] MEDS ORDERED: POTASSIUM PHOSPHATE INJ 30 MMOL in D5W 500 ML IV ONE (17:00)
--- NOTE | 2019-12-31 17:47 | REP ---
PORTABLE CHEST X-RAY: SINGLE VIEW. HISTORY: Fever and shortness of breath. Comparison chest x-ray, December 29, 2019. FINDINGS: There is elevation left hemidiaphragm suggesting some subpulmonic effusion and discoid atelectasis in the left base. Lung vargas are otherwise clear. Heart is not enlarged. A left-sided PICC line is noted in place with its tip in the expected location of the superior vena cava. Monitoring electrodes are seen. IMPRESSION: Elevated left hemidiaphragm and hazy opacity in the left base suggests left effusion. There is platelike atelectasis in the left base. Essentially unchanged from comparison portable chest x-ray, December 29, 2019. Electronically Signed by Kwaku Paris MD 01/01/2020 09:11 A
[2019-12-31] MEDS ORDERED: AMINO AC/ELECTROLYTE/DEX/CALC 2,000 ML IV SCH (18:00)
[2020-01-01] VITALS: BP 119/82
[2020-01-01] MEDS: INSULIN REGULAR IN 0.9 % NACL 100 UNIT in IV 1 EA IV SCH ×6 (00:05→19:30)
[2020-01-01] MEDS: INSULIN IV RATE CHANGE DOCUMENTATION ML/HR XX SCH ×8 (03:51→22:52)
[2020-01-01 04:00] VITALS: BP 144/64
[2020-01-01] MEDS: HEPARIN SOD (PORCINE) 5000UNITS/ML VIAL (J1644 PER 1000UNITS) SC SCH ×3 (05:02→20:54)
[2020-01-01] MEDS: LevoFLOXacin IV 750 MG in IV 1 EA IV SCH (05:02)
[2020-01-01 05:09] LABS: HEMATOCRIT 32.6 % (42.0-52.0); HEMOGLOBIN 10.6 g/dl (13.5-17.5); MEAN CORPUSCULAR HEMOGLOBIN 28.8 pg (27.0-33.0); MEAN CORPUSCULAR HGB CONC 32.5 g/dl (32.0-36.5); MEAN CORPUSCULAR VOLUME 88.6 fl (80.0-96.0); PLATELET COUNT, AUTOMATED 264 10^3/uL (150-450); RED BLOOD COUNT 3.68 10^6/uL (4.30-6.10); WHITE BLOOD COUNT 8.9 10^3/uL (4.0-10.0)
[2020-01-01 05:37] LABS: ALBUMIN 1.8 GM/DL (3.2-5.2); ALT/SGPT 27 U/L (12-78); BILIRUBIN,TOTAL 1.5 MG/DL (0.2-1.0); BLOOD UREA NITROGEN 7 MG/DL (7-18); CALCIUM LEVEL 7.7 MG/DL (8.5-10.1); CARBON DIOXIDE LEVEL 28 MEQ/L (21-32); CHLORIDE LEVEL 99 MEQ/L (98-107); CREATININE FOR GFR 0.84 MG/DL (0.70-1.30); GLOMERULAR FILTRATION RATE > 60.0 (>56); GLUCOSE, FASTING 114 MG/DL (70-100); MAGNESIUM LEVEL 2.1 MG/DL (1.8-2.4); PHOSPHORUS LEVEL 2.4 MG/DL (2.5-4.9); SODIUM LEVEL 133 MEQ/L (136-145); TOTAL PROTEIN 6.2 GM/DL (6.4-8.2); TRIGLYCERIDES LEVEL 860 MG/DL (<150)
[2020-01-01] MEDS ORDERED: POTASSIUM CHLORIDE 10 MEQ SR TABLET PO ONE (05:45)
[2020-01-01] MEDS: KCL 10MEQ/100ML SWI (KRUN) 10 MEQ in IV 1 EA IV SCH ×4 (06:00→10:03)
[2020-01-01] MEDS: MORPHINE 2 MG/ML 1ML VIAL (J2270) IV PRN ×4 (06:26→20:57)
[2020-01-01 07:30] VITALS: BP 122/60
[2020-01-01] MEDS: PANTOPRAZOLE 40MG VIAL (C9113 PER 1) IV SCH ×2 (08:41→19:30)
[2020-01-01] MEDS: LACTOBACILLUS ACIDOPHILUS CAP (BACID) PO SCH (08:46)
[2020-01-01] MEDS: ATORVASTATIN 20 MG TAB PO SCH (08:47)
[2020-01-01] MEDS: SIMETHICONE 80 MG CHEW TAB PO SCH ×4 (08:47→19:29)
[2020-01-01] MEDS: GABAPENTIN 300 MG CAP PO SCH ×2 (08:47→19:29)
[2020-01-01] MEDS: CALCITRIOL 1 MCG/ML PO SCH (08:48)
[2020-01-01] MEDS: CALCIUM CARB SUSP 1250MG/5ML UNIT DOSE CUP PO SCH ×3 (08:48→19:30)
[2020-01-01] MEDS: FENOFIBRATE 145 MG TAB (TRICOR) PO SCH (08:49)
--- NOTE | 2020-01-01 11:04 | IPN ---
DATE: 01/01/2020 Patient has been doing well overall last night. He still continues have some soft/liquid bowel movements and overall has been afebrile. His weight has dropped down a little bit today and he is not complaining of any significant shortness of breath. He states that he is able to move around a little bit better but still needs significant help to get him out of bed. He still has a Benitez catheter in place. He has been afebrile and from and intake and output standpoint put out a great deal of urine yesterday and his weight has dropped a little bit again this morning. He has had three bowel movements already this morning. His labs show that he continues have a normal white count and his abdomen is still distended, soft, however with less discomfort and pain with palpation, but it is mostly secondary to abdominal wall stretch that seems to be mostly uncomfortable. Otherwise, no other significant abdominal findings. IMPRESSION/PLAN: Patient is stable at this time and making some slow but progressive improvement. He does have some followup labs ordered from medicine standpoint concerning his potassium, etc. From my standpoint, I would recommend that he stay on clears today and progress his diet to a low-fat diet when you feel that he would tolerate this, but no surgical intervention is necessary at this time.
[2020-01-01 11:54] VITALS: BP 147/63
[2020-01-01 16:15] VITALS: BP 142/63
[2020-01-01] MEDS ORDERED: MULTIVITAMIN -ADULT INJECTION 10 ML, CR/CU/SE/MN/ZN INJ 1 ML in AMINO AC/ELECTROLYTE/DE... IV SCH (18:00)
[2020-01-01 20:00] VITALS: BP 129/56
[2020-01-02] VITALS: BP 127/59
[2020-01-02] MEDS: RAMELTEON 8 MG TAB (ROZEREM) PO PRN (01:00)
[2020-01-02] MEDS: INSULIN IV RATE CHANGE DOCUMENTATION ML/HR XX SCH ×8 (02:14→18:02)
[2020-01-02] MEDS: PROMETHAZINE INJ 25 MG/ML VIAL (J2550) IV PRN ×2 (03:59→15:55)
[2020-01-02 04:00] VITALS: BP 109/57
[2020-01-02] MEDS: LevoFLOXacin IV 750 MG in IV 1 EA IV SCH (05:28)
[2020-01-02] MEDS: HEPARIN SOD (PORCINE) 5000UNITS/ML VIAL (J1644 PER 1000UNITS) SC SCH ×3 (05:28→22:06)
[2020-01-02 05:34] LABS: HEMOGLOBIN 10.3 g/dl (13.5-17.5); MEAN CORPUSCULAR HEMOGLOBIN 29.3 pg (27.0-33.0); MEAN CORPUSCULAR HGB CONC 33.2 g/dl (32.0-36.5); MEAN CORPUSCULAR VOLUME 88.3 fl (80.0-96.0); PLATELET COUNT, AUTOMATED 274 10^3/uL (150-450); RED BLOOD COUNT 3.51 10^6/uL (4.30-6.10); WHITE BLOOD COUNT 11.8 10^3/uL (4.0-10.0)
[2020-01-02 06:00] LABS: ALBUMIN 1.7 GM/DL (3.2-5.2); ALT/SGPT 28 U/L (12-78); BILIRUBIN,TOTAL 1.2 MG/DL (0.2-1.0); BLOOD UREA NITROGEN 9 MG/DL (7-18); CALCIUM LEVEL 7.7 MG/DL (8.5-10.1); CARBON DIOXIDE LEVEL 29 MEQ/L (21-32); CHLORIDE LEVEL 98 MEQ/L (98-107); CREATININE FOR GFR 1.02 MG/DL (0.70-1.30); GLOMERULAR FILTRATION RATE > 60.0 (>56); GLUCOSE, FASTING 178 MG/DL (70-100); MAGNESIUM LEVEL 2.2 MG/DL (1.8-2.4); PHOSPHORUS LEVEL 2.6 MG/DL (2.5-4.9); POTASSIUM SERUM 2.7 MEQ/L (3.5-5.1); SODIUM LEVEL 134 MEQ/L (136-145); TRIGLYCERIDES LEVEL 706 MG/DL (<150)
[2020-01-02] MEDS ORDERED: POTASSIUM CHLORIDE 10 MEQ SR TABLET PO ONE (06:15)
[2020-01-02] MEDS: INSULIN REGULAR IN 0.9 % NACL 100 UNIT in IV 1 EA IV SCH ×6 (06:59→23:57)
[2020-01-02] MEDS: KCL 10MEQ/100ML SWI (KRUN) 10 MEQ in IV 1 EA IV SCH ×4 (07:00→10:59)
[2020-01-02 08:42] VITALS: BP 131/59
--- NOTE | 2020-01-02 09:12 | IPNPDOC ---
Text Note Date of Service The patient was seen on 12/31/19. NOTE Subjective: Patient seen and examined at bedside. Feeling better today. No acute overnight events reported. No new medical complaints. Objective: Vitals - see below General: NAD, lying comfortably in bed HEENT: NC/AT, EOMI Lungs: CTA B/L Heart: +S1S2, tachycardic, -M/R/G Abd: distended, +BS, tender Ext: trace edema A/P: Patient is a 49-year-old male with a PMHx of NIDDM2, DLP, who presented to the hospital with complaints of abdominal discomfort associated with nausea and vomiting after he had eaten breakfast at [employer]. On arrival to ER, lab work was consistent with acute pancreatitis associated with hypertriglyceridemia. Patient was admitted to the hospitalist service for further evaluation and treatment #Acute pancreatitis - likely 2/2 Hypertriglyceridemia - Abdominal tenderness improving - Hemodynamically stable and afebrile - Triglyceride levels slowly trending down - insulin gtt continued - CT abdomen / pelvis 12/26: 1. Acute pancreatitis as described above (peripancreatic inflammatory stranding and small amount of fluid extends along left anterior pararenal space along with mild edematous appearance to the panc reatic body/tail. No drainable collection/abscess or pseudocyst) - c/w pain control and anti-emetics #XANDER - patient has indicated he does have a history of XANDER and uses CPAP - family to bring in machine #increased abdominal pressure/abdominal pain -surgery consulted - assistance appreciated - appears to have stabilized - considering removal of NG tube- minimal output #electrolyte disturbance - continue to replete and follow - should improve with TPN #nutrition - PICC line placement - start TPN with no lipids #NIDDM2 - c/w insulin drip while in ICU (re: Hypertriglyceridemia) - Will transition to insulin sliding scale once triglyceride levels optimized #DLP - Elevated triglyceride levels as above - Will start Fenofibrate when off insulin drip - c/w Atorvastatin #Neuropathy - c/w Gabapentin #GERD - c/w Omeprazole #DVT prophylaxis - c/w Heparin VS,Fishbone, I+O VS, Fishbone, I+O Laboratory Tests 01/02/20 05:15 Vital Signs Date Time Temp Pulse Resp B/P (MAP) Pulse Ox O2 Delivery O2 Flow Rate FiO2 01/02/20 04:00 99.4 104 18 109/57 (74) 93 Room Air 01/01/20 00:00 I&O- Last 24 Hours up to 6 AM 01/02/20 05:59 Intake Total 4099.5 ml Output Total 4510 ml Balance -410.5 ml BART HUTCHINSON MD January 02, 2020 09:12
--- NOTE | 2020-01-02 09:12 | IPNPDOC ---
Text Note Date of Service The patient was seen on 01/01/20. NOTE Subjective: Patient seen and examined at bedside. Feeling better today. No acute overnight events reported. No new medical complaints. Objective: Vitals - see below General: NAD, lying comfortably in bed HEENT: NC/AT, EOMI Lungs: CTA B/L Heart: +S1S2, tachycardic, -M/R/G Abd: distended but improving, +BS, tender Ext: trace edema A/P: Patient is a 49-year-old male with a PMHx of NIDDM2, DLP, who presented to the hospital with complaints of abdominal discomfort associated with nausea and vomiting after he had eaten breakfast at [employer]. On arrival to ER, lab work was consistent with acute pancreatitis associated with hypertriglyceridemia. Patient was admitted to the hospitalist service for further evaluation and treatment #Acute pancreatitis - likely 2/2 Hypertriglyceridemia - Abdominal tenderness improving - Hemodynamically stable and afebrile - Triglyceride levels slowly trending down - insulin gtt continued - CT abdomen / pelvis 12/26: 1. Acute pancreatitis as described above (peripancreatic inflammatory stranding and small amount of fluid extends along left anterior pararenal space along with mild edematous appearance to the pancreatic body/tail. No drainable collection/abscess or pseudocyst) - c/w pain control and anti-emetics #XANDER - patient has indicated he does have a history of XANDER and uses CPAP - family to bring in machine #increased abdominal pressure/abdominal pain -surgery consulted - assistance appreciated - appears to have stabilized - considering removal of NG tube- minimal output #electrolyte disturbance - continue to replete and follow - should improve with TPN #nutrition - PICC line placement - start TPN with no lipids #NIDDM2 - c/w insulin drip while in ICU (re: Hypertriglyceridemia) - Will transition to insulin sliding scale once triglyceride levels optimized #DLP - Elevated triglyceride levels as above - Will start Fenofibrate when off insulin drip - c/w Atorvastatin #Neuropathy - c/w Gabapentin #GERD - c/w Omeprazole #DVT prophylaxis - c/w Heparin VS,Fishbone, I+O VS, Fishbone, I+O Laboratory Tests 01/02/20 05:15 Vital Signs Date Time Temp Pulse Resp B/P (MAP) Pulse Ox O2 Delivery O2 Flow Rate FiO2 01/02/20 04:00 99.4 104 18 109/57 (74) 93 Room Air 01/01/20 00:00 I&O- Last 24 Hours up to 6 AM 01/02/20 05:59 Intake Total 4099.5 ml Output Total 4510 ml Balance -410.5 ml BART HUTCHINSON MD January 02, 2020 09:12
--- NOTE | 2020-01-02 09:14 | IPNPDOC ---
Text Note Date of Service The patient was seen on 01/02/20. NOTE Subjective: Patient seen and examined at bedside. Continues to feel better. Still with belly discomfort, but much improved. No new medical complaints, no acute overnight events reported. Objective: Vitals - see below General: NAD, lying comfortably in bed HEENT: NC/AT, EOMI Lungs: CTA B/L Heart: +S1S2, tachycardic, -M/R/G Abd: distended, +BS, mild tenderness Ext: trace edema A/P: Patient is a 49-year-old male with a PMHx of NIDDM2, DLP, who presented to the hospital with complaints of abdominal discomfort associated with nausea and vomiting after he had eaten breakfast at [employer]. On arrival to ER, lab work was consistent with acute pancreatitis associated with hypertriglyceridemia. Patient was admitted to the hospitalist service for further evaluation and treatment #Acute pancreatitis - likely 2/2 Hypertriglyceridemia - Abdominal tenderness and distention improving - Hemodynamically stable and afebrile - Triglyceride levels continues slowly trending down - insulin gtt continued - CT abdomen / pelvis 12/26: 1. Acute pancreatitis as described above (peripancreatic inflammatory stranding and small amount of fluid extends along left anterior pararenal space along with mild edematous appearance to the pancreatic body/tail. No drainable collection/abscess or pseudocyst) - c/w pain control and anti-emetics #XANDER - patient has indicated he does have a history of XANDER and uses CPAP - family to bring in machine #increased abdominal pressure/abdominal pain -surgery consulted - assistance appreciated - appears to have stabilized - tolerating clear liquid diet #electrolyte disturbance - continue to replete and follow - should improve with TPN #nutrition - PICC line placement - continue TPN with no lipids #NIDDM2 - c/w insulin drip while in ICU (re: Hypertriglyceridemia) - Will transition to insulin sliding scale once triglyceride levels optimized #DLP - Elevated triglyceride levels as above - Will start Fenofibrate when off insulin drip - c/w Atorvastatin #Neuropathy - c/w Gabapentin #GERD - c/w Omeprazole #DVT prophylaxis - c/w Heparin Dispo: pending TG <500 VS,Fishbone, I+O VS, Fishbone, I+O Laboratory Tests 01/02/20 05:15 Vital Signs Date Time Temp Pulse Resp B/P (MAP) Pulse Ox O2 Delivery O2 Flow Rate FiO2 01/02/20 04:00 99.4 104 18 109/57 (74) 93 Room Air 01/01/20 00:00 I&O- Last 24 Hours up to 6 AM 01/02/20 05:59 Intake Total 4099.5 ml Output Total 4510 ml Balance -410.5 ml BART HUTCHINSON MD January 02, 2020 09:14
[2020-01-02] MEDS: ATORVASTATIN 20 MG TAB PO SCH (09:46)
[2020-01-02] MEDS: SIMETHICONE 80 MG CHEW TAB PO SCH ×4 (09:46→20:00)
[2020-01-02] MEDS: CALCITRIOL 1 MCG/ML PO SCH (09:46)
[2020-01-02] MEDS: LACTOBACILLUS ACIDOPHILUS CAP (BACID) PO SCH (09:46)
[2020-01-02] MEDS: CALCIUM CARB SUSP 1250MG/5ML UNIT DOSE CUP PO SCH ×3 (09:46→20:00)
[2020-01-02] MEDS: PANTOPRAZOLE 40MG VIAL (C9113 PER 1) IV SCH ×2 (09:46→20:00)
[2020-01-02] MEDS: FENOFIBRATE 145 MG TAB (TRICOR) PO SCH (09:47)
[2020-01-02] MEDS: GABAPENTIN 300 MG CAP PO SCH ×2 (09:47→20:00)
[2020-01-02 12:36] VITALS: BP 128/75
[2020-01-02 16:06] VITALS: BP 112/64
[2020-01-02 16:58] LABS: CLOSTRIDIUM DIFFICILE PCR NEGATIVE (NEGATIVE)
[2020-01-02] MEDS ORDERED: ELECTROLYTE IV SCH (18:00)
[2020-01-02] MEDS ORDERED: AMINO AC IV SCH (18:00)
[2020-01-02] MEDS ORDERED: CALC IV SCH (18:00)
[2020-01-02] MEDS ORDERED: DEX IV SCH (18:00)
[2020-01-02] MEDS ORDERED: POTASSIUM CHLORIDE IV SCH (18:00)
[2020-01-02 20:00] VITALS: BP 118/70
[2020-01-02] MEDS: MORPHINE 2 MG/ML 1ML VIAL (J2270) IV PRN (22:07)
[2020-01-03] VITALS (7 sets, daily range): BP systolic 113–135; BP diastolic 53–66
[2020-01-03] MEDS: INSULIN IV RATE CHANGE DOCUMENTATION ML/HR XX SCH ×6 (04:06→21:05)
[2020-01-03 04:39] LABS: HEMATOCRIT 32.9 % (42.0-52.0); HEMOGLOBIN 10.7 g/dl (13.5-17.5); MEAN CORPUSCULAR HEMOGLOBIN 28.8 pg (27.0-33.0); MEAN CORPUSCULAR HGB CONC 32.5 g/dl (32.0-36.5); MEAN CORPUSCULAR VOLUME 88.7 fl (80.0-96.0); PLATELET COUNT, AUTOMATED 318 10^3/uL (150-450); RED BLOOD COUNT 3.71 10^6/uL (4.30-6.10); WHITE BLOOD COUNT 17.3 10^3/uL (4.0-10.0)
[2020-01-03] MEDS: HEPARIN SOD (PORCINE) 5000UNITS/ML VIAL (J1644 PER 1000UNITS) SC SCH ×3 (05:01→20:48)
[2020-01-03] MEDS: LevoFLOXacin IV 750 MG in IV 1 EA IV SCH (05:01)
[2020-01-03 05:19] LABS: ALBUMIN 1.7 GM/DL (3.2-5.2); ALT/SGPT 28 U/L (12-78); BILIRUBIN,TOTAL 1.3 MG/DL (0.2-1.0); BLOOD UREA NITROGEN 13 MG/DL (7-18); CALCIUM LEVEL 8.1 MG/DL (8.5-10.1); CARBON DIOXIDE LEVEL 26 MEQ/L (21-32); CHLORIDE LEVEL 102 MEQ/L (98-107); CREATININE FOR GFR 1.03 MG/DL (0.70-1.30); GLOMERULAR FILTRATION RATE > 60.0 (>56); GLUCOSE, FASTING 76 MG/DL (70-100); MAGNESIUM LEVEL 2.4 MG/DL (1.8-2.4); PHOSPHORUS LEVEL 3.8 MG/DL (2.5-4.9); SODIUM LEVEL 135 MEQ/L (136-145); TOTAL PROTEIN 6.4 GM/DL (6.4-8.2); TRIGLYCERIDES LEVEL 645 MG/DL (<150)
[2020-01-03] MEDS ORDERED: POTASSIUM CHLORIDE 10 MEQ SR TABLET PO ONE (05:45)
[2020-01-03] MEDS ORDERED: KCL 10MEQ/100ML SWI (KRUN) 10 MEQ in IV 1 EA IV SCH (06:00)
[2020-01-03] MEDS: KCL 20MEQ IN 100ML SWI (KRUN) 20 MEQ in IV 1 EA IV SCH ×4 (06:56→08:10)
[2020-01-03] MEDS: LACTOBACILLUS ACIDOPHILUS CAP (BACID) PO SCH (08:10)
[2020-01-03] MEDS: CALCITRIOL 1 MCG/ML PO SCH (08:10)
[2020-01-03] MEDS: CALCIUM CARB SUSP 1250MG/5ML UNIT DOSE CUP PO SCH ×3 (08:10→19:11)
[2020-01-03] MEDS: GABAPENTIN 300 MG CAP PO SCH ×2 (08:11→20:48)
[2020-01-03] MEDS: SIMETHICONE 80 MG CHEW TAB PO SCH ×4 (08:11→20:49)
[2020-01-03] MEDS: PANTOPRAZOLE 40MG VIAL (C9113 PER 1) IV SCH ×2 (08:12→20:48)
[2020-01-03] MEDS: FENOFIBRATE 145 MG TAB (TRICOR) PO SCH (08:12)
[2020-01-03] MEDS: ATORVASTATIN 20 MG TAB PO SCH (08:12)
--- NOTE | 2020-01-03 08:51 | IPNPDOC ---
Text Note Date of Service The patient was seen on 01/03/20. NOTE Subjective: Patient seen and examined at bedside. Continues to feel better, however he has developed a left lower quadrant abdominal pain. He also has been having some diarrhea, with an episode this morning, that he states he was unaware of. He denies any saddle parasthesia, denies numbness or tingling in his lower extremities, denies back pain. Denies chest pain. Objective: Vitals - see below General: NAD, lying comfortably in bed HEENT: NC/AT, EOMI Lungs: CTA B/L Heart: +S1S2, tachycardic, -M/R/G Abd: distended, +BS, mild tenderness - more in the mid epigastric and LLQ Ext: trace edema A/P: Patient is a 49-year-old male with a PMHx of NIDDM2, DLP, who pr esented to the hospital with complaints of abdominal discomfort associated with nausea and vomiting after he had eaten breakfast at [employer]. On arrival to ER, lab work was consistent with acute pancreatitis associated with hypertriglyceridemia. Patient was admitted to the hospitalist service for further evaluation and treatment #Acute pancreatitis - likely 2/2 hypertriglyceridemia - hemodynamically stable and afebrile - Triglyceride levels continues slowly trending down - insulin gtt continued - CT abdomen / pelvis 12/26: 1. Acute pancreatitis as described above ( peripancreatic inflammatory stranding and small amount of fluid extends along left anterior pararenal space along with mild edematous appearance to the pancreatic body/tail. No drainable collection/abscess or pseudocyst) - c/w pain control and anti-emetics - CT chest/abd/pelvis pending today for further evaluation of LLQ pain with worsening leukocytosis; d/w surgery - assistance appreciated #XANDER - patient has indicated he does have a history of XANDER and uses CPAP #increased abdominal pressure/abdominal pain -surgery consulted - assistance appreciated - appears to have stabilized - tolerating clear liquid diet #electrolyte disturbance - continue to replete and follow #nutrition - PICC line placed - continue TPN with no lipids #NIDDM2 - c/w insulin drip while in ICU (re: Hypertriglyceridemia) - Will transition to insulin sliding scale once triglyceride levels optimized #DLP - Elevated triglyceride levels as above - Will start Fenofibrate when off insulin drip - c/w Atorvastatin #Neuropathy - c/w Gabapentin #GERD - c/w Omeprazole #DVT prophylaxis - c/w Heparin Dispo: pending TG <500, CT chest/abd/pelvis VS,Fishbone, I+O VS, Fishbone, I+O Laboratory Tests 01/03/20 04:17 Vital Signs Date Time Temp Pulse Resp B/P (MAP) Pulse Ox O2 Delivery O2 Flow Rate FiO2 01/03/20 04:00 99.5 106 20 120/58 (78) 97 01/03/20 00:00 Room Air 01/01/20 00:00 I&O- Last 24 Hours up to 6 AM 01/03/20 05:59 Intake Total 3708 ml Output Total 2225 ml Balance 1483 ml BART HUTCHINSON MD January 03, 2020 08:51
[2020-01-03] MEDS: INSULIN REGULAR IN 0.9 % NACL 100 UNIT in IV 1 EA IV SCH ×4 (09:16→18:02)
[2020-01-03] MEDS: PROMETHAZINE INJ 25 MG/ML VIAL (J2550) IV PRN (09:16)
[2020-01-03] MEDS: GASTROGRAFIN SOLUTION 30ML PO SCH ×2 (09:41→10:01)
[2020-01-03 10:06] LABS: LIPASE 373 U/L (73-393)
[2020-01-03] MEDS ORDERED: ISOVUE-370 76% 100ML VIAL As Ordered ONE (11:09)
--- NOTE | 2020-01-03 12:02 | REP ---
CT CHEST WITH IV CONTRAST: TECHNIQUE: Axial contrast-enhanced images from the thoracic inlet to the upper abdomen using 100 mL Isovue-370 intravenous contrast material with multiplanar reformations. There is mild elevation of the left hemidiaphragm again noted. There is a small left pleural effusion with adjacent left lower lobe atelectasis/infiltrate. There appear to be mild right lower lobe atelectatic changes. No right pleural effusion is seen. Heart is normal in size. There is no thoracic aortic aneurysm or dissection. I do not see significant mediastinal, hilar, or chest wall lymphadenopathy. There is no pericardial effusion. IMPRESSION: Mild elevation of left hemidiaphragm. Small left pleural effusion with mild adjacent left lower lobe atelectasis/infiltrate. Electronically Signed by Doyle Steele MD 01/03/2020 12:29 P
--- NOTE | 2020-01-03 12:09 | REP ---
CT ABDOMEN AND PELVIS WITH ORAL AND IV CONTRAST: TECHNIQUE: Axial contrast-enhanced images from the lung bases to the pubic symphysis using 100 mL Isovue-370 intravenous contrast material with multiplanar reformations. COMPARISON: 12/28/2019 The liver demonstrates diffuse fatty infiltration. Spleen is normal in size with no intrinsic abnormality. Adrenal glands are normal. Kidneys are unremarkable. There is again evidence of significant pancreatitis with diffuse peripancreatic inflammatory changes extending inferiorly into the mesentery. There is moderate diffuse free fluid in the abdomen and pelvis. The inflammatory changes and free fluid have mildly increased since the prior CT exam. Again, no drainable abscess or pseudocyst is seen. There could be early pseudocyst forming along the posterior aspect of the stomach. There is mild small bowel dilatation diffusely which may represent a mild ileus. Urinary bladder is collapsed and contains a Benitez catheter. IMPRESSION: Mild increase in findings of pancreatitis with peripancreatic inflammation and moderate diffuse free fluid. The amount of fluid has slightly increased since prior CT of 12/28/2019. There is, again, no evidence of discrete abscess or pseudocyst. There could be early pseudocyst formation along the posterior aspect of the stomach. Electronically Signed by Doyle Steele MD 01/03/2020 12:29 P
[2020-01-03] MEDS ORDERED: POTASSIUM CHLORIDE IV SCH (18:00)
[2020-01-03] MEDS ORDERED: AMINO AC IV SCH (18:00)
[2020-01-03] MEDS ORDERED: CALC IV SCH (18:00)
[2020-01-03] MEDS ORDERED: ELECTROLYTE IV SCH (18:00)
[2020-01-03] MEDS ORDERED: DEX IV SCH (18:00)
[2020-01-03] MEDS: RAMELTEON 8 MG TAB (ROZEREM) PO PRN (21:01)
[2020-01-04] VITALS: BP 130/58
[2020-01-04] MEDS: INSULIN REGULAR IN 0.9 % NACL 100 UNIT in IV 1 EA IV SCH ×6 (01:01→21:49)
[2020-01-04] MEDS: INSULIN IV RATE CHANGE DOCUMENTATION ML/HR XX SCH ×6 (01:03→21:48)
[2020-01-04 04:00] VITALS: BP 116/59
[2020-01-04] MEDS: LevoFLOXacin IV 750 MG in IV 1 EA IV SCH (05:06)
[2020-01-04] MEDS: HEPARIN SOD (PORCINE) 5000UNITS/ML VIAL (J1644 PER 1000UNITS) SC SCH ×3 (05:06→20:48)
[2020-01-04 05:10] LABS: HEMOGLOBIN 10.2 g/dl (13.5-17.5); MEAN CORPUSCULAR HEMOGLOBIN 29.5 pg (27.0-33.0); MEAN CORPUSCULAR HGB CONC 32.9 g/dl (32.0-36.5); MEAN CORPUSCULAR VOLUME 89.6 fl (80.0-96.0); PLATELET COUNT, AUTOMATED 313 10^3/uL (150-450); RED BLOOD COUNT 3.46 10^6/uL (4.30-6.10); WHITE BLOOD COUNT 15.2 10^3/uL (4.0-10.0)
[2020-01-04 05:35] LABS: ALBUMIN 1.7 GM/DL (3.2-5.2); ALT/SGPT 42 U/L (12-78); BLOOD UREA NITROGEN 13 MG/DL (7-18); CALCIUM LEVEL 7.9 MG/DL (8.5-10.1); CARBON DIOXIDE LEVEL 24 MEQ/L (21-32); CHLORIDE LEVEL 103 MEQ/L (98-107); CREATININE FOR GFR 1.06 MG/DL (0.70-1.30); GLOMERULAR FILTRATION RATE > 60.0 (>56); GLUCOSE, FASTING 122 MG/DL (70-100); MAGNESIUM LEVEL 2.2 MG/DL (1.8-2.4); PHOSPHORUS LEVEL 4.1 MG/DL (2.5-4.9); POTASSIUM SERUM 3.6 MEQ/L (3.5-5.1); SODIUM LEVEL 138 MEQ/L (136-145); TOTAL PROTEIN 5.7 GM/DL (6.4-8.2); TRIGLYCERIDES LEVEL 564 MG/DL (<150)
[2020-01-04 08:00] VITALS: BP 118/58
[2020-01-04] MEDS: CALCIUM CARB SUSP 1250MG/5ML UNIT DOSE CUP PO SCH ×3 (08:33→20:46)
[2020-01-04] MEDS: CALCITRIOL 1 MCG/ML PO SCH (08:34)
[2020-01-04] MEDS: LACTOBACILLUS ACIDOPHILUS CAP (BACID) PO SCH (08:34)
[2020-01-04] MEDS: SIMETHICONE 80 MG CHEW TAB PO SCH ×4 (08:35→20:47)
[2020-01-04] MEDS: ATORVASTATIN 20 MG TAB PO SCH (08:35)
[2020-01-04] MEDS: GABAPENTIN 300 MG CAP PO SCH ×2 (08:35→20:48)
[2020-01-04] MEDS: FENOFIBRATE 145 MG TAB (TRICOR) PO SCH (08:36)
[2020-01-04] MEDS: PANTOPRAZOLE 40MG VIAL (C9113 PER 1) IV SCH ×2 (08:36→20:46)
[2020-01-04 08:57] LABS: POTASSIUM SERUM 2.5 MEQ/L (3.5-5.1)
--- NOTE | 2020-01-04 11:27 | IPNPDOC ---
Text Note Date of Service The patient was seen on 01/04/20. NOTE Subjective: Patient seen and examined at bedside. Continues to feel better. He had a fall yesterday, with head trauma, but he refused a CT head for further evaluation. This morning he has no new medical complaints. Still has some LUQ abdominal pain, but improving. Objective: Vitals - see below General: NAD, lying comfortably in bed HEENT: NC/AT, EOMI Lungs: CTA B/L Heart: +S1S2, tachycardic, -M/R/G Abd: distended, +BS, mild tenderness - more in the mid epigastric and LLQ Ext: trace edema Neuro: no focal deficits A/P: Patient is a 49-year-old male with a PMHx of NIDDM2, DLP, who presented to the hospital with complaints of abdominal discomfort associated wit h nausea and vomiting after he had eaten breakfast at [employer]. On arrival to ER, lab work was consistent with acute pancreatitis associated with hypertriglyceridemia. Patient was admitted to the hospitalist service for further evaluation and treatment #Acute pancreatitis - likely 2/2 hypertriglyceridemia - almost <500 - anticipate off insulin gtt by tomorrow - repeat CT increased inflammation, possible pseudocyst - d/w surgery - continue with current plan - hemodynamically stable and afebrile #XANDER - patient has indicated he does have a history of XANDER and uses CPAP #increased abdominal pressure/abdominal pain -surgery consulted - assistance appreciated - appears to have stabilized - tolerating clear liquid diet #electrolyte disturbance - continue to replete and follow #nutrition - PICC line placed - continue TPN with no lipids #NIDDM2 - c/w insulin drip while in ICU (re: Hypertriglyceridemia) - Will transition to insulin sliding scale once triglyceride levels optimized #DLP - Elevated triglyceride levels as above - Will start Fenofibrate when off insulin drip - c/w Atorvastatin #Neuropathy - c/w Gabapentin #GERD - c/w Omeprazole #DVT prophylaxis - c/w Heparin Dispo: pending TG <500, likely will continue TPN even off insulin gtt, PT VS,Fishbone, I+O VS, Fishbone, I+O Laboratory Tests 01/03/20 11:50 01/04/20 04:41 Vital Signs Date Time Temp Pulse Resp B/P (MAP) Pulse Ox O2 Delivery O2 Flow Rate FiO2 01/04/20 08:00 99.4 100 18 118/58 (78) 95 Room Air 01/01/20 00:00 I&O- Last 24 Hours up to 6 AM 01/04/20 06:00 Intake Total 3786 ml Output Total 850 ml Balance 2936 ml BART HUTCHINSON MD Jan 04, 2020 11:27
[2020-01-04 12:00] VITALS: BP 118/58
[2020-01-04] MEDS: MORPHINE 2 MG/ML 1ML VIAL (J2270) IV PRN ×2 (14:06→20:47)
[2020-01-04 16:00] VITALS: BP 114/59
[2020-01-04] MEDS ORDERED: MULTIVITAMIN -ADULT INJECTION 10 ML, CR/CU/SE/MN/ZN INJ 1 ML, POTASSIUM CHLORIDE INJ 44... IV SCH ×4 (18:00)
[2020-01-04 20:00] VITALS: BP 113/63
[2020-01-04] MEDS: RAMELTEON 8 MG TAB (ROZEREM) PO PRN (20:47)
[2020-01-05] VITALS: BP 105/57
[2020-01-05] MEDS: INSULIN IV RATE CHANGE DOCUMENTATION ML/HR XX SCH (02:06)
[2020-01-05 04:00] VITALS: BP 109/64
[2020-01-05 04:43] LABS: HEMATOCRIT 28.5 % (42.0-52.0); HEMOGLOBIN 9.3 g/dl (13.5-17.5); MEAN CORPUSCULAR HEMOGLOBIN 29.2 pg (27.0-33.0); MEAN CORPUSCULAR HGB CONC 32.6 g/dl (32.0-36.5); MEAN CORPUSCULAR VOLUME 89.3 fl (80.0-96.0); PLATELET COUNT, AUTOMATED 356 10^3/uL (150-450); RED BLOOD COUNT 3.19 10^6/uL (4.30-6.10); WHITE BLOOD COUNT 13.9 10^3/uL (4.0-10.0)
[2020-01-05 05:09] LABS: ALBUMIN 1.7 GM/DL (3.2-5.2); ALT/SGPT 38 U/L (12-78); BILIRUBIN,TOTAL 0.9 MG/DL (0.2-1.0); BLOOD UREA NITROGEN 12 MG/DL (7-18); CARBON DIOXIDE LEVEL 24 MEQ/L (21-32); CHLORIDE LEVEL 103 MEQ/L (98-107); GLOMERULAR FILTRATION RATE > 60.0 (>56); GLUCOSE, FASTING 131 MG/DL (70-100); MAGNESIUM LEVEL 2.1 MG/DL (1.8-2.4); PHOSPHORUS LEVEL 3.2 MG/DL (2.5-4.9); POTASSIUM SERUM 3.5 MEQ/L (3.5-5.1); SODIUM LEVEL 135 MEQ/L (136-145); TOTAL PROTEIN 6.2 GM/DL (6.4-8.2); TRIGLYCERIDES LEVEL 411 MG/DL (<150)
[2020-01-05] MEDS: LevoFLOXacin IV 750 MG in IV 1 EA IV SCH (06:10)
[2020-01-05] MEDS: HEPARIN SOD (PORCINE) 5000UNITS/ML VIAL (J1644 PER 1000UNITS) SC SCH ×3 (06:10→22:09)
[2020-01-05 08:00] VITALS: BP 109/56
--- NOTE | 2020-01-05 08:48 | IPNPDOC ---
Text Note Date of Service The patient was seen on 01/05/20. NOTE Subjective: Patient seen and examined at bedside. Continue to feel better. Off insulin gtt. still some LUQ pain/tenderness. Objective: Vitals - see below General: NAD, lying comfortably in bed HEENT: NC/AT, EOMI Lungs: CTA B/L Heart: +S1S2, -M/R/G Abd: distended, +BS, mild tenderness - more in the mid epigastric and LUQ Ext: trace edema Neuro: no focal deficits A/P: Patient is a 49-year-old male with a PMHx of NIDDM2, DLP, who presented to the hospital with complaints of abdominal discomfort associated with nausea and vomiting after he had eaten breakfast at [employer]. On arrival to ER, lab work was consistent with acute pancreatitis associated with hypertr iglyceridemia. Patient was admitted to the hospitalist service for further evaluation and treatment #Acute pancreatitis - likely 2/2 hypertriglyceridemia - TG<500, off insulin gtt - continue with TPN for another day - still distended, tender, pain - but improving - hemodynamically stable and afebrile #XANDER - patient has indicated he does have a history of XANDER and uses CPAP #increased abdominal pressure/abdominal pain -surgery consulted - assistance appreciated - appears to have stabilized - tolerating clear liquid diet #electrolyte disturbance - continue to replete and follow #nutrition - PICC line placed - continue TPN with no lipids #NIDDM2 - sliding scale #DLP - Elevated triglyceride levels as above - Fenofibrate - c/w Atorvastatin #Neuropathy - c/w Gabapentin #GERD - c/w Omeprazole #DVT prophylaxis - c/w Heparin Dispo: dc insulin gtt, transfer to floor, continue TPN, anticipate trial of advancing diet tomorrow VS,Fishbone, I+O VS, Fishbone, I+O Laboratory Tests 01/05/20 04:33 Vital Signs Date Time Temp Pulse Resp B/P (MAP) Pulse Ox O2 Delivery O2 Flow Rate FiO2 01/05/20 04:00 98.9 97 16 109/64 (79) 94 Room Air 01/04/20 14:16 2.0 I&O- Last 24 Hours up to 6 AM 01/05/20 05:59 Intake Total 4547 ml Output Total 2625 ml Balance 1922 ml BART HUTCHINSON MD Jan 05, 2020 08:48
[2020-01-05] MEDS: GABAPENTIN 300 MG CAP PO SCH ×3 (09:46→22:08)
[2020-01-05] MEDS: CALCITRIOL 1 MCG/ML PO SCH (09:46)
[2020-01-05] MEDS: CALCIUM CARB SUSP 1250MG/5ML UNIT DOSE CUP PO SCH ×3 (09:46→22:07)
[2020-01-05] MEDS: LACTOBACILLUS ACIDOPHILUS CAP (BACID) PO SCH (09:46)
[2020-01-05] MEDS: SIMETHICONE 80 MG CHEW TAB PO SCH ×4 (09:46→22:08)
[2020-01-05] MEDS: PANTOPRAZOLE 40MG VIAL (C9113 PER 1) IV SCH ×2 (09:46→22:06)
[2020-01-05] MEDS: FENOFIBRATE 145 MG TAB (TRICOR) PO SCH (09:46)
[2020-01-05] MEDS: ATORVASTATIN 20 MG TAB PO SCH (09:47)
[2020-01-05 11:18] VITALS: BP 125/69
[2020-01-05] MEDS ORDERED: DEXTROSE 50% 50 ML SYRINGE IV PRN (12:15)
[2020-01-05] MEDS ORDERED: GLUCOSE 4GM CHEW TABLET PO PRN (12:15)
[2020-01-05] MEDS ORDERED: GLUCAGON INJ 1MG VIAL SC PRN (12:15)
[2020-01-05] MEDS: HumaLOG INSULIN (NovoLOG) PER UNIT SC SCH ×3 (13:01→21:00)
[2020-01-05] MEDS ORDERED: AMINO AC/ELECTROLYTE/DEX/CALC 2,000 ML IV SCH (18:00)
[2020-01-05] MEDS: SODIUM CHLORIDE 0.9% INJ 10 ML SYR IV SCH (18:33)
[2020-01-05] MEDS: PROMETHAZINE INJ 25 MG/ML VIAL (J2550) IV PRN (18:38)
[2020-01-05 20:30] VITALS: BP 106/68
[2020-01-05 21:55] VITALS: BP 108/62
[2020-01-05] MEDS: SODIUM CHLORIDE 0.9% INJ 10 ML SYR IV PRN (22:12)
[2020-01-05] MEDS: ACETAMINOPHEN TAB 650MG DOSE (2X325MG) PO PRN (22:13)
[2020-01-06 02:00] VITALS: BP 112/66
[2020-01-06] MEDS: PROMETHAZINE INJ 25 MG/ML VIAL (J2550) IV PRN ×3 (03:04→22:09)
[2020-01-06] MEDS: SODIUM CHLORIDE 0.9% INJ 10 ML SYR IV PRN ×4 (03:04→22:54)
[2020-01-06] MEDS: LevoFLOXacin 750 MG TABLET PO SCH (05:47)
[2020-01-06] MEDS: SODIUM CHLORIDE 0.9% INJ 10 ML SYR IV SCH ×2 (05:47→17:01)
[2020-01-06] MEDS: HEPARIN SOD (PORCINE) 5000UNITS/ML VIAL (J1644 PER 1000UNITS) SC SCH ×3 (05:47→22:09)
[2020-01-06 06:00] VITALS: BP 104/56
[2020-01-06 06:01] LABS: HEMOGLOBIN 9.2 g/dl (13.5-17.5); MEAN CORPUSCULAR HEMOGLOBIN 28.7 pg (27.0-33.0); MEAN CORPUSCULAR HGB CONC 31.7 g/dl (32.0-36.5); MEAN CORPUSCULAR VOLUME 90.3 fl (80.0-96.0); PLATELET COUNT, AUTOMATED 375 10^3/uL (150-450); RED BLOOD COUNT 3.21 10^6/uL (4.30-6.10); WHITE BLOOD COUNT 10.9 10^3/uL (4.0-10.0)
[2020-01-06 06:34] LABS: ALBUMIN 1.9 GM/DL (3.2-5.2); ALT/SGPT 33 U/L (12-78); BILIRUBIN,TOTAL 0.8 MG/DL (0.2-1.0); BLOOD UREA NITROGEN 12 MG/DL (7-18); CALCIUM LEVEL 7.9 MG/DL (8.5-10.1); CARBON DIOXIDE LEVEL 24 MEQ/L (21-32); CHLORIDE LEVEL 103 MEQ/L (98-107); CREATININE FOR GFR 0.94 MG/DL (0.70-1.30); GLOMERULAR FILTRATION RATE > 60.0 (>56); GLUCOSE, FASTING 182 MG/DL (70-100); MAGNESIUM LEVEL 2.1 MG/DL (1.8-2.4); PHOSPHORUS LEVEL 2.7 MG/DL (2.5-4.9); POTASSIUM SERUM 4.4 MEQ/L (3.5-5.1); SODIUM LEVEL 135 MEQ/L (136-145); TOTAL PROTEIN 5.8 GM/DL (6.4-8.2); TRIGLYCERIDES LEVEL 470 MG/DL (<150)
[2020-01-06] MEDS: GABAPENTIN 300 MG CAP PO SCH ×3 (09:00→21:00)
[2020-01-06] MEDS: CALCITRIOL 1 MCG/ML PO SCH (09:24)
[2020-01-06] MEDS: HumaLOG INSULIN (NovoLOG) PER UNIT SC SCH ×4 (09:25→22:08)
[2020-01-06] MEDS: SIMETHICONE 80 MG CHEW TAB PO SCH ×4 (09:25→22:08)
[2020-01-06] MEDS: FENOFIBRATE 145 MG TAB (TRICOR) PO SCH (09:25)
[2020-01-06] MEDS: PANTOPRAZOLE 40MG VIAL (C9113 PER 1) IV SCH ×2 (09:25→22:08)
[2020-01-06] MEDS: ATORVASTATIN 20 MG TAB PO SCH (09:25)
[2020-01-06] MEDS: LACTOBACILLUS ACIDOPHILUS CAP (BACID) PO SCH (09:25)
[2020-01-06] MEDS: CALCIUM CARB SUSP 1250MG/5ML UNIT DOSE CUP PO SCH ×3 (09:25→22:07)
[2020-01-06] MEDS ORDERED: BLOOKIT21 XX (10:56)
[2020-01-06] MEDS ORDERED: ALCOPAD25 TOP (10:56)
[2020-01-06] MEDS ORDERED: INSU1MIS20 SC (10:56)
[2020-01-06] MEDS ORDERED: PEN1MIS23 SC (10:56)
[2020-01-06] MEDS ORDERED: LANC30MI XX (10:56)
[2020-01-06] MEDS ORDERED: GLUC1TES2 XX (10:56)
[2020-01-06] MEDS ORDERED: PEN1MIS21 SC (10:56)
[2020-01-06] MEDS ORDERED: PEN1MIS22 SC (10:56)
[2020-01-06] MEDS ORDERED: FENO145T7 PO (10:58)
[2020-01-06] MEDS ORDERED: ATOR1TAB21 PO (10:58)
--- NOTE | 2020-01-06 11:02 | IPNPDOC ---
Text Note Date of Service The patient was seen on 01/06/20. NOTE Subjective: Patient seen and examined at bedside. Continue to feel better. Still has some abdominal pain, and diarrhea. Objective: Vitals - see below General: NAD, lying comfortably in bed HEENT: NC/AT, EOMI Lungs: CTA B/L Heart: +S1S2, -M/R/G Abd: distended - much improved, +BS, mild tenderness - LUQ Ext: trace edema Neuro: no focal deficits A/P: 49-year-old male with a PMHx of NIDDM2, DLP, who presented to the hospital with complaints of abdominal discomfort associated with nausea and vomiting after he had eaten breakfast at [employer]. On arrival to ER, lab work was consistent with acute pancreatitis associated with hypertriglyceridemia. Patient was admitted to the hospitalist service for further evaluation and treatment #Acute pancreatitis - likely 2/2 hypertriglyceridemia - TG<500, off insulin gtt - off TPN - advance diet as tolerated #XANDER - patient has indicated he does have a history of XANDER and uses CPAP #increased abdominal pressure/abdominal pain - surgery consulted - assistance appreciated - appears to have stabilized - tolerating clear liquid diet - advancing as tolerated #electrolyte disturbance - continue to replete and follow #nutrition - advancing diet as tolerated #NIDDM2 - sliding scale - A1C >10 - planning discharge with insulin therapy #diarrhea - check stool polys - doubt infectious however did spike fever last night, leukocytosis improving #DLP - Elevated triglyceride levels as above - c/w Atorvastatin, Fenofibrate #Neuropathy? - patient states he does not take gabapentin #GERD - c/w Omeprazole #DVT prophylaxis - c/w Heparin Dispo: clinical improvement, improvement with abdominal distention and pain, advance diet as tolerated; anticipate discharge in 24-48 hours VS,Fishbone, I+O VS, Fishbone, I+O Laboratory Tests 01/06/20 05:15 Vital Signs Date Time Temp Pulse Resp B/P (MAP) Pulse Ox O2 Delivery O2 Flow Rate FiO2 01/06/20 06:00 99.4 94 16 104/56 (72) 95 Room Air 01/04/20 14:16 2.0 I&O- Last 24 Hours up to 6 AM 01/06/20 06:00 Intake Total 3280 ml Output Total 665 ml Balance 2615 ml BART HUTCHINSON MD Jan 06, 2020 11:02
[2020-01-06 14:00] VITALS: BP 121/74
[2020-01-06] MEDS: ONDANSETRON 4MG/2ML VIAL IV PRN (14:32)
[2020-01-06] MEDS: ACETAMINOPHEN TAB 650MG DOSE (2X325MG) PO PRN ×2 (14:41→22:09)
[2020-01-06 22:00] VITALS: BP 115/70
[2020-01-07 02:55] VITALS: BP 133/84
[2020-01-07 06:00] VITALS: BP 116/77
[2020-01-07 06:25] LABS: HEMATOCRIT 28.9 % (42.0-52.0); HEMOGLOBIN 9.4 g/dl (13.5-17.5); MEAN CORPUSCULAR HEMOGLOBIN 28.9 pg (27.0-33.0); MEAN CORPUSCULAR HGB CONC 32.5 g/dl (32.0-36.5); MEAN CORPUSCULAR VOLUME 88.9 fl (80.0-96.0); PLATELET COUNT, AUTOMATED 433 10^3/uL (150-450); RED BLOOD COUNT 3.25 10^6/uL (4.30-6.10); WHITE BLOOD COUNT 10.1 10^3/uL (4.0-10.0)
[2020-01-07 06:49] LABS: ALBUMIN 2.1 GM/DL (3.2-5.2); ALT/SGPT 34 U/L (12-78); BILIRUBIN,TOTAL 0.7 MG/DL (0.2-1.0); BLOOD UREA NITROGEN 11 MG/DL (7-18); CARBON DIOXIDE LEVEL 26 MEQ/L (21-32); CHLORIDE LEVEL 102 MEQ/L (98-107); GLOMERULAR FILTRATION RATE > 60.0 (>56); GLUCOSE, FASTING 203 MG/DL (70-100); MAGNESIUM LEVEL 2.1 MG/DL (1.8-2.4); POTASSIUM SERUM 4.2 MEQ/L (3.5-5.1); SODIUM LEVEL 135 MEQ/L (136-145); TOTAL PROTEIN 6.2 GM/DL (6.4-8.2)
[2020-01-07] MEDS: LevoFLOXacin 750 MG TABLET PO SCH (06:52)
[2020-01-07] MEDS: HEPARIN SOD (PORCINE) 5000UNITS/ML VIAL (J1644 PER 1000UNITS) SC SCH ×3 (06:52→20:58)
[2020-01-07] MEDS: SODIUM CHLORIDE 0.9% INJ 10 ML SYR IV SCH ×2 (06:52→17:42)
[2020-01-07] MEDS: SODIUM CHLORIDE 0.9% INJ 10 ML SYR IV PRN ×2 (06:53→21:00)
[2020-01-07] MEDS: ACETAMINOPHEN TAB 650MG DOSE (2X325MG) PO PRN (06:54)
[2020-01-07] MEDS: LACTOBACILLUS ACIDOPHILUS CAP (BACID) PO SCH (08:00)
[2020-01-07] MEDS: SIMETHICONE 80 MG CHEW TAB PO SCH ×4 (08:00→20:58)
[2020-01-07] MEDS: CALCIUM CARB SUSP 1250MG/5ML UNIT DOSE CUP PO SCH ×3 (08:00→20:58)
[2020-01-07] MEDS: ATORVASTATIN 20 MG TAB PO SCH (08:00)
[2020-01-07] MEDS: GABAPENTIN 300 MG CAP PO SCH ×2 (08:00→09:00)
[2020-01-07] MEDS: PANTOPRAZOLE 40MG VIAL (C9113 PER 1) IV SCH ×2 (08:00→20:58)
[2020-01-07] MEDS: FENOFIBRATE 145 MG TAB (TRICOR) PO SCH (08:00)
[2020-01-07] MEDS: HumaLOG INSULIN (NovoLOG) PER UNIT SC SCH ×4 (08:00→20:59)
[2020-01-07] MEDS: CALCITRIOL 1 MCG/ML PO SCH (08:01)
--- NOTE | 2020-01-07 12:27 | IPNPDOC ---
Text Note Date of Service The patient was seen on 01/07/20. NOTE Subjective: Patient seen and examined at bedside. Continue to feel better. Still has some abdominal pain, and diarrhea. Objective: Vitals - see below General: NAD, lying comfortably in bed HEENT: NC/AT, EOMI Lungs: CTA B/L Heart: +S1S2, -M/R/G Abd: distended - much improved, +BS, mild tenderness - LUQ Ext: trace edema Neuro: no focal deficits A/P: 49-year-old male with a PMHx of NIDDM2, DLP, who presented to the hospital with complaints of abdominal discomfort associated with nausea and vomiting after he had eaten breakfast at [employer]. On arrival to ER, lab work was consistent with acute pancreatitis associated with hypertriglyceridemia. Patient was admitted to the hospitalist service for further evaluation and treatment #Acute pancreatitis - likely 2/2 hypertriglyceridemia - TG<500, off insulin gtt - off TPN - diet as tolerated #XANDER - patient has indicated he does have a history of XANDER and uses CPAP #increased abdominal pressure/abdominal pain - surgery consulted - assistance appreciated - appears to have stabilized - tolerating clear liquid diet - advancing as tolerated #electrolyte disturbance - continue to replete and follow #nutrition - advancing diet as tolerated #NIDDM2 - sliding scale - A1C >10 - planning discharge with insulin therapy #diarrhea - check stool polys - doubt infectious however did spike fever last night, leukocytosis improving #DLP - Elevated triglyceride levels as above - c/w Atorvastatin, Fenofibrate #Neuropathy? - patient states he does not take gabapentin #GERD - c/w Omeprazole #DVT prophylaxis - c/w Heparin Dispo: clinical improvement, repeat imaging abdomen, encourage ambulation VS,Fishbone, I+O VS, Fishbone, I+O Laboratory Tests 01/07/20 06:03 Vital Signs Date Time Temp Pulse Resp B/P (MAP) Pulse Ox O2 Delivery O2 Flow Rate FiO2 01/07/20 06:00 98.8 98 18 116/77 (90) 95 Room Air 01/04/20 14:16 2.0 l I&O- Last 24 Hours up to 6 AM 01/07/20 06:00 Intake Total 2600 ml Output Total 800 ml Balance 1800 ml BART HUTCHINSON MD Jan 07, 2020 12:27
[2020-01-07 13:00] LABS: LIPASE 445 U/L (73-393)
[2020-01-07 14:00] VITALS: BP 120/70
[2020-01-07 22:00] VITALS: BP 119/73
[2020-01-07] MEDS: ONDANSETRON 4MG/2ML VIAL IV PRN (23:06)
[2020-01-08] MEDS: RAMELTEON 8 MG TAB (ROZEREM) PO PRN (01:17)
[2020-01-08] MEDS ORDERED: PROMETHAZINE INJ 25 MG/ML VIAL (J2550) IV ONE (05:15)
[2020-01-08] MEDS: HEPARIN SOD (PORCINE) 5000UNITS/ML VIAL (J1644 PER 1000UNITS) SC SCH ×3 (05:22→22:07)
[2020-01-08] MEDS: SODIUM CHLORIDE 0.9% INJ 10 ML SYR IV SCH ×2 (05:23→17:18)
--- NOTE | 2020-01-08 05:58 | REP ---
Clinical: Complications related to pancreatitis. Technique: Axial noncontrast images from the lung bases to the pubic symphysis with coronal and sagittal re-formations. Comparison: 01/03/2020. Findings: Moderate to significant peripancreatic inflammatory stranding and small amount of fluid extending in the retroperitoneal space and along the left pericolic gutter into the pelvis is again identified. Findings appear minimally decreased as compared to 01/03/2020. No obvious discrete drainable collection/abscess or cyst noted. Liver, spleen, gallbladder, bilateral adrenal glands and kidneys are relatively normal / stable for noncontrast evaluation. Enteric system is without obstruction or acute inflammatory process. Normal terminal ileum and appendix are identified in the right lower quadrant. Scattered colonic diverticula noted without obvious acute diverticulitis. No free air. No significant adenopathy. Abdominal aorta without aneurysm. Musculoskeletal structures demonstrate age-related changes without focal abnormality. Lung bases demonstrate moderate left lower lobe consolidation/atelectasis with small left pleural effusion and minimal right basilar atelectasis. Impression: 1. Minimally decreased peripancreatic inflammatory stranding and small amount of ascites. No obvious drainable collection/abscess or cyst. 2. Scattered colonic diverticula without definite acute diverticulitis. 3. Moderate left lower lobe consolidation/atelectasis with small left pleural effusion. Electronically Signed by Elvin Magdaleno MD 01/08/2020 05:50 A
[2020-01-08 06:00] VITALS: BP 116/72
[2020-01-08] MEDS: LACTOBACILLUS ACIDOPHILUS CAP (BACID) PO SCH (08:54)
[2020-01-08] MEDS: FENOFIBRATE 145 MG TAB (TRICOR) PO SCH (08:54)
[2020-01-08] MEDS: SIMETHICONE 80 MG CHEW TAB PO SCH ×4 (08:54→20:34)
[2020-01-08] MEDS: ATORVASTATIN 20 MG TAB PO SCH (08:54)
[2020-01-08] MEDS: PANTOPRAZOLE 40MG VIAL (C9113 PER 1) IV SCH ×2 (08:56→20:33)
[2020-01-08] MEDS: HumaLOG INSULIN (NovoLOG) PER UNIT SC SCH ×4 (08:56→20:26)
[2020-01-08] MEDS: CALCITRIOL 1 MCG/ML PO SCH (08:57)
[2020-01-08] MEDS: CALCIUM CARB SUSP 1250MG/5ML UNIT DOSE CUP PO SCH ×3 (08:57→20:34)
--- NOTE | 2020-01-08 11:22 | IPNPDOC ---
Text Note Date of Service The patient was seen on 01/08/20. NOTE Subjective: Patient seen and examined at bedside. Still complains of abdominal pain, marginally improving daily. Very concerned about his dietary restrictions, and ability to obtain medications. Denies any other medical complaints, no acute overnight events reported. Objective: Vitals - see below General: NAD, lying comfortably in bed HEENT: NC/AT, EOMI Lungs: CTA B/L Heart: +S1S2, -M/R/G Abd: distended - much improved, +BS, mild tenderness - LUQ Ext: trace edema Neuro: no focal deficits A/P: 49-year-old male with a PMHx of NIDDM2, DLP, who presented to the hospital with complaints of abdominal discomfort associated with nausea and vomiting after he had eaten breakfast at [employer]. On arrival to ER, lab work was consistent with acute pancreatitis associated with hypertriglyceridemia. Patient was admitted to the hospitalist service for further evaluation and treatment #Acute pancreatitis - likely 2/2 hypertriglyceridemia - TG<500, off insulin gtt - tolerating diet - encouraging patient to exercise discretion with what he can tolerate with PO intake - there was a bottle of regular sugar soda at his be dside - patient requesting dietary consultation - will wean off IV meds (anti-emetics, analgesics) #XANDER - patient has indicated he does have a history of XANDER and uses CPAP #increased abdominal pressure/abdominal pain - surgery consulted - assistance appreciated - appears to have stabilized - tolerating clear liquid diet - advancing as tolerated #electrolyte disturbance - continue to replete and follow #nutrition - advancing diet as tolerated #NIDDM2 - sliding scale - A1C >10 - he is concerned about going home with insulin - nursing staff state he has done well with diabetic teaching - he notes gross dietary indiscretion - states he is very motivated to implement lifestyle modification including modified diet - perhaps could consider increasing oral meds - o/p f/u with his PCP this week (his ex-) to discuss insulin therapy #diarrhea - improving #DLP - Elevated triglyceride levels as above - c/w Atorvastatin, Fenofibrate #Neuropathy? - patient states he does not take gabapentin #GERD - c/w Omeprazole #DVT prophylaxis - c/w Heparin Dispo: still pending clinical improvement, titrate IV to PO meds, dietary consultation VS,Fishbone, I+O VS, Fishbone, I+O Vital Signs Date Time Temp Pulse Resp B/P (MAP) Pulse Ox O2 Delivery O2 Flow Rate FiO2 01/08/20 06:00 98.8 93 20 116/72 (87) 93 Room Air 01/04/20 14:16 2.0 I&O- Last 24 Hours up to 6 AM 01/08/20 06:00 Intake Total 1580 ml Output Total 1350 ml Balance 230 ml BART HUTCHINSON MD Jan 08, 2020 11:22
[2020-01-08 14:00] VITALS: BP 141/73
[2020-01-08] MEDS: ACETAMINOPHEN TAB 650MG DOSE (2X325MG) PO PRN (20:34)
[2020-01-08 22:00] VITALS: BP_SYST 117; BP_SYST 138; BP_DIAS 61; BP_DIAS 72
[2020-01-08] MEDS ORDERED: PROMETHAZINE INJ 25 MG/ML VIAL (J2550) IV PRN (22:00)
[2020-01-08] MEDS: SODIUM CHLORIDE 0.9% INJ 10 ML SYR IV PRN (22:42)
[2020-01-09] MEDS: HEPARIN SOD (PORCINE) 5000UNITS/ML VIAL (J1644 PER 1000UNITS) SC SCH ×3 (05:25→21:01)
[2020-01-09] MEDS: SODIUM CHLORIDE 0.9% INJ 10 ML SYR IV SCH ×2 (05:26→18:10)
[2020-01-09 06:00] VITALS: BP 123/66
[2020-01-09 07:18] LABS: BASO % 0.4 % (0.0-1.0); EOS # 0.2 10^3/uL (0.0-0.5); EOS % 2.4 % (0.0-3.0); HEMATOCRIT 30.8 % (42.0-52.0); HEMOGLOBIN 9.7 g/dl (13.5-17.5); LYMPH # 1.4 10^3/uL (1.5-5.0); LYMPH % 17.4 % (24.0-44.0); MEAN CORPUSCULAR HEMOGLOBIN 28.3 pg (27.0-33.0); MEAN CORPUSCULAR HGB CONC 31.5 g/dl (32.0-36.5); MEAN CORPUSCULAR VOLUME 89.8 fl (80.0-96.0); MONO # 0.8 10^3/uL (0.0-0.8); MONO % 10.5 % (0.0-5.0); NEUTROPHILS # 5.5 10^3/uL (1.5-8.5); NEUTROPHILS % 68.4 % (36.0-66.0); PLATELET COUNT, AUTOMATED 499 10^3/uL (150-450); RED BLOOD COUNT 3.43 10^6/uL (4.30-6.10)
[2020-01-09 07:47] LABS: ALBUMIN 2.1 GM/DL (3.2-5.2); ALT/SGPT 21 U/L (12-78); BILIRUBIN,TOTAL 0.4 MG/DL (0.2-1.0); BLOOD UREA NITROGEN 8 MG/DL (7-18); CALCIUM LEVEL 8.5 MG/DL (8.5-10.1); CARBON DIOXIDE LEVEL 27 MEQ/L (21-32); CHLORIDE LEVEL 102 MEQ/L (98-107); CREATININE FOR GFR 0.86 MG/DL (0.70-1.30); GLOMERULAR FILTRATION RATE > 60.0 (>56); GLUCOSE, FASTING 196 MG/DL (70-100); POTASSIUM SERUM 4.2 MEQ/L (3.5-5.1); SODIUM LEVEL 138 MEQ/L (136-145); TOTAL PROTEIN 6.6 GM/DL (6.4-8.2)
[2020-01-09] MEDS: PANTOPRAZOLE 40MG VIAL (C9113 PER 1) IV SCH (08:43)
[2020-01-09] MEDS: FENOFIBRATE 145 MG TAB (TRICOR) PO SCH (08:49)
[2020-01-09] MEDS: LACTOBACILLUS ACIDOPHILUS CAP (BACID) PO SCH (08:49)
[2020-01-09] MEDS: SIMETHICONE 80 MG CHEW TAB PO SCH ×4 (08:49→21:01)
[2020-01-09] MEDS: CALCIUM CARB SUSP 1250MG/5ML UNIT DOSE CUP PO SCH ×3 (08:49→21:00)
[2020-01-09] MEDS: ATORVASTATIN 20 MG TAB PO SCH (08:49)
[2020-01-09] MEDS: ACETAMINOPHEN TAB 650MG DOSE (2X325MG) PO PRN (08:50)
[2020-01-09] MEDS: CALCITRIOL 1 MCG/ML PO SCH (08:50)
[2020-01-09] MEDS: HumaLOG INSULIN (NovoLOG) PER UNIT SC SCH ×4 (08:50→20:14)
[2020-01-09] MEDS ORDERED: PROMETHAZINE 25 MG TAB PO PRN (10:15)
[2020-01-09] MEDS: LIDOCAINE 5% (LIDODERM) PATCH TD SCH (11:58)
[2020-01-09 15:40] VITALS: BP 133/69
--- NOTE | 2020-01-09 18:16 | IPNPDOC ---
Text Note Date of Service The patient was seen on 01/09/20. NOTE TIME OF SERVICE: 9 AM Subjective: The patient reports that his abdominal pain is generally improved but gets worse after eating. Objective: GEN: NAD CVS: RRR/NMRG LUNGS: CTAB on RA ABDOMEN: Soft and nontender/ no Steele sign or [place]cam[place] sign NEURO: CN II to 12 grossly intact./Speech not dysarthric PSYCH: A&O 3, able to understand and follow commands Vitals and labs: see below Assessment: Mr. Orlando is a 49 old with a history of NIDDM and dyslipidemia who is admitted for management of pancreatitis 2/2 hypertriglyceridemia. Plan: 1. Hyperlipidemia associated pancreatitis - continue with Tylenol for pain/continue fenofibrate to lower lipids 2. IDDM with A1c of 10.5. - f/u accuchecks & A1C / hypoglycemia protocol / sliding scale insulin / diabetes education 3. Normocytic anemia. Hg trending down f/u CBC 4. XANDER - own CPAP 5. Obesity with BMI 33.2 complicates care. DVT Px w heparin VS,Fishbone, I+O VS, Fishbone, I+O Laboratory Tests 01/09/20 06:43 Vital Signs Date Time Temp Pulse Resp B/P (MAP) Pulse Ox O2 Delivery O2 Flow Rate FiO2 01/09/20 15:40 96.5 90 18 133/69 (90) 90 Room Air 01/04/20 14:16 2.0 I&O- Last 24 Hours up to 6 AM 01/09/20 05:59 Intake Total 1560 ml Output Total 1800 ml Balance -240 ml FEROZ MARTINEZ MD Jan 09, 2020 18:16
[2020-01-09 19:34] LABS: HEMOGLOBIN A1c 10.1 %
[2020-01-09] MEDS ORDERED: **NOTE PATIENT COMMENT** MISC XX SCH (21:00)
[2020-01-09 22:00] VITALS: BP 115/70
[2020-01-10] MEDS: SODIUM CHLORIDE 0.9% INJ 10 ML SYR IV SCH (05:20)
[2020-01-10] MEDS: HEPARIN SOD (PORCINE) 5000UNITS/ML VIAL (J1644 PER 1000UNITS) SC SCH (05:20)
[2020-01-10 06:00] VITALS: BP 131/80
[2020-01-10 06:03] LABS: BASO % 0.4 % (0.0-1.0); EOS # 0.2 10^3/uL (0.0-0.5); EOS % 2.3 % (0.0-3.0); HEMATOCRIT 29.9 % (42.0-52.0); HEMOGLOBIN 9.7 g/dl (13.5-17.5); LYMPH # 1.6 10^3/uL (1.5-5.0); LYMPH % 18.4 % (24.0-44.0); MEAN CORPUSCULAR HGB CONC 32.4 g/dl (32.0-36.5); MEAN CORPUSCULAR VOLUME 89.3 fl (80.0-96.0); MONO # 0.9 10^3/uL (0.0-0.8); MONO % 10.5 % (0.0-5.0); NEUTROPHILS # 5.8 10^3/uL (1.5-8.5); NEUTROPHILS % 67.8 % (36.0-66.0); PLATELET COUNT, AUTOMATED 527 10^3/uL (150-450); RED BLOOD COUNT 3.35 10^6/uL (4.30-6.10); WHITE BLOOD COUNT 8.5 10^3/uL (4.0-10.0)
[2020-01-10 06:24] LABS: BLOOD UREA NITROGEN 8 MG/DL (7-18); CALCIUM LEVEL 8.4 MG/DL (8.5-10.1); CARBON DIOXIDE LEVEL 26 MEQ/L (21-32); CHLORIDE LEVEL 101 MEQ/L (98-107); CREATININE FOR GFR 0.89 MG/DL (0.70-1.30); GLOMERULAR FILTRATION RATE > 60.0 (>56); GLUCOSE, FASTING 233 MG/DL (70-100); POTASSIUM SERUM 4.1 MEQ/L (3.5-5.1); SODIUM LEVEL 136 MEQ/L (136-145)
[2020-01-10] MEDS: HumaLOG INSULIN (NovoLOG) PER UNIT SC SCH ×2 (08:38→12:43)
[2020-01-10] MEDS: CALCIUM CARB SUSP 1250MG/5ML UNIT DOSE CUP PO SCH (08:39)
[2020-01-10] MEDS: SIMETHICONE 80 MG CHEW TAB PO SCH ×2 (08:39→12:42)
[2020-01-10] MEDS: CALCITRIOL 1 MCG/ML PO SCH (08:40)
[2020-01-10] MEDS: FENOFIBRATE 145 MG TAB (TRICOR) PO SCH (08:41)
[2020-01-10] MEDS: ATORVASTATIN 20 MG TAB PO SCH (08:41)
[2020-01-10] MEDS: LACTOBACILLUS ACIDOPHILUS CAP (BACID) PO SCH (08:41)
[2020-01-10] MEDS: LIDOCAINE 5% (LIDODERM) PATCH TD SCH (08:41)
[2020-01-10] MEDS ORDERED: PANTOPRAZOLE 40MG TAB (PROTONIX) PO SCH (09:00)
--- NOTE | 2020-01-10 09:37 | DS.PDOC ---
Discharge Summary General Date of Admission December 26, 2019 at 17:19 Date of Discharge 01/10/2020 Time of service 8:40 AM Primary Care Physician: MELANI ALFARO DO Attending Physician: FEROZ MARTINEZ MD Specialist/Consultants Involve Peter Madrid M.D., Kary Bruce M.D. Discharge Summary PROCEDURES PERFORMED DURING STAY: NG tube placement. PICC line placement for TPN ADMITTING DIAGNOSES: 1. acute pancreatitis likely secondary to hypertriglyceridemia 2. DM 3. DLP DISCHARGE DIAGNOSES: 1. Acute pancreatitis 2/2 Hypertriglyceridemia 2. IDDM (A1c of 10.5%). 3. Normocytic anemia. Hg trending down f/u CBC 4. XANDER 5. Obesity 6. electrolyte derangements -resolved 7. increased abdominal pain / pressure likely 2/2 pancreatitis- resolved 8. diarrhea -resolved 9. obesity with BMI of 33.2 complicates care COMPLICATIONS/CHIEF COMPLAINT: Acute Pancreatitis. HISTORY OF PRESENT ILLNESS: Per HPI this is a "49 yo male in his usual state of health, when to [employer] for breakfast this morning around 9am. Roughly 30 minutes later experienced severe abdominal pain, nausea and vomiting. Has never had this type of pain before. He was diagnosed with DM last summer, and has been taking his current medication regimen since then. However, he has not taken any of his medications for the past month.Denies any other medical complaints. Denies shortness of breath, chest pain, diarrhea, headaches. Follows with Dr. Whiting and Dr. Alfaro. " HOSPITAL COURSE: He was admitted to ICU for management of pancreatitis secondary to hypertriglyceridemia with insulin drip. On the , he developed increasing abdominal pain and discomfort; his intra-abdominal pressure was checked and noted to be slightly elevated. Both Drs. Bruce and Mercy were consulted and confirmed that the patient did not have abdominal compartment syndrome and did not require surgical intervention. Over the next few days his abdominal pain improved, he was transitioned from TPN to soild food and his pain meds were weaned down to oral to Tylenol. On the morning of January 09. He was reexamined and reported that his abdominal pain had resolved and he was able to tolerate solid food. He added that he had already been started on insulin by his doctor at the [facility], but had not had time to fill the prescriptions yet. DISCHARGE MEDICATIONS: Please see below. ALLERGIES: Please see below. PHYSICAL EXAMINATION ON DISCHARGE: VITAL SIGNS: Please see below. GENERAL: NAD HEENT: NCAT CARDIOVASCULAR EXAMINATION: RRR/NMRG NEUROLOGICAL EXAMINATION: CN 2-12 intact / speech not dysarthric PSYCHIATRIC EXAMINATION: A&O x3 / able to understand and follow all commands LABORATORY DATA: Please see below. IMAGING: CT abdomen 12/26/19 "Impression: 1. Acute pancreatitis as described above." Liver US 12/27/19 "Impression: 1. Hepatic steatosis. 2. Trace free fluid in the right upper quadrant. 3. No evidence for cholecystitis." CT abdomen 12/28/19 "Impression: 1. Increasing generalized inflammatory changes with moderate amount of free fluid consistent with pancreatitis which appears worsened when compared to prior examination. No drainable collection/abscess or pseudocyst. Pancreas demonstrates normal enhancement without ischemia or necrosis. 2. Lung bases demonstrate lower lobe consolidations (left greater than right), perihilar atelectasis, and small left pleural effusion." Chest x-ray 12/29/19 "Impression: Nasogastric tube in satisfactory position. Left basilar opacity may represent chronic change with superimposed possible atelectasis and effusion cannot be excluded." Chest x-ray 12/31/19 "IMPRESSION: Elevated left hemidiaphragm and hazy opacity in the left base suggests left effusion. There is platelike atelectasis in the left base. Essentially unchanged from comparison portable chest x-ray, December 29, 2019." CT chest 01/03/20 "IMPRESSION: Mild elevation of left hemidiaphragm. Small left pleural effusion with mild adjacent left lower lobe atelectasis/infiltrate." CT abdomen 01/03/20 "IMPRESSION: Mild increase in findings of pancreatitis with peripancreatic inflammation and moderate diffuse free fluid. The amount of fluid has slightly increased since prior CT of 12/28/2019. There is, again, no evidence of discrete abscess or pseudocyst. There could be early pseudocyst formation along the posterior aspect of the stomach." CT abdomen 01/07/20 "Impression: 1. Minimally decreased peripancreatic inflammatory stranding and small amount of ascites. No obvious drainable collection/abscess or cyst. 2. Scattered colonic diverticula without definite acute diverticulitis. 3. Moderate left lower lobe consolidation/atelectasis with small left pleural effusion" PROGNOSIS: fair ACTIVITY: [As tolerated]. DIET: Low-fat, low-cholesterol carbohydrate consistent diet DISCHARGE PLAN: Home DISPOSITION: . DISCHARGE INSTRUCTIONS: 1. Please follow-up with your Dr. Alfaro and Dr. Whiting within the next week to discuss your insulin regimen 2. Please corn picker the prescriptions that be sent for atorvastatin, fenofibrate, and glucose test strips ITEMS TO FOLLOWUP ON ON OUTPATIENT: 1. Insulin use. 2. Appearance to cholesterol medications. 3. Carbohydrate consistent low-fat, low-cholesterol diet 4. Exercise DISCHARGE CONDITION: [Stable]. TIME SPENT ON DISCHARGE: approximately 40 minutes were spent in discharge planning including discussing diet, exercise, and the importance of adherance to his medictions Vital Signs/I&Os Vital Signs Date Time Temp Pulse Resp B/P (MAP) Pulse Ox O2 Delivery O2 Flow Rate FiO2 01/10/20 06:00 97.5 91 16 131/80 (97) 93 Room Air 01/04/20 14:16 2.0 I&O- Last 24 Hours up to 6 AM 01/10/20 05:59 Intake Total 2215 ml Output Total 450 ml Balance 1765 ml Laboratory Data Labs 24H Laboratory Tests 2 01/09/20 11:31: Bedside Glucose (Misc Panel) 250H 01/09/20 16:12: Bedside Glucose (Misc Panel) 214H 01/09/20 19:04: Estimated Mean Plasma Glucose 243H, Hemoglobin A1c 10.1 01/09/20 20:02: Bedside Glucose (Misc Panel) 227H 01/10/20 05:32: Immature Granulocyte % (Auto) 0.6, Neutrophils (%) (Auto) 67.8H, Lymphocytes (%) (Auto) 18.4L, Monocytes (%) (Auto) 10.5H, Eosinophils (%) (Auto) 2.3, Basophils (%) (Auto) 0.4, Neutrophils # (Auto) 5.8, Lymphocytes # (Auto) 1.6, Monocytes # (Auto) 0.9H, Eosinophils # (Auto) 0.2, Basophils # (Auto) 0.0, Nucleated Red Blood Cells % (auto) 0.0, Anion Gap 9, Glomerular Filtration Rate > 60.0, Calcium Level 8.4L CBC/BMP Laboratory Tests 01/10/20 05:32 FSBS Laboratory Tests Test 01/09/20 11:31 6/6/20 16:12 01/09/20 20:02 Range/Units Bedside Glucose (Misc Panel) 250 214 227 70-105 MG/DL Microbiology Microbiology 01/06/20 Stool Lactoferrin - Final, Complete 01/06/20 Stool Occult Blood (JEANIE) - Final, Complete 12/31/19 Gram Stain - Final, Complete 12/31/19 Sputum Culture - Final, Complete 12/31/19 Blood Culture - Final, Complete NO GROWTH AFTER 5 DAYS 12/31/19 Blood Culture - Final, Complete NO GROWTH AFTER 5 DAYS Discharge Medications Scheduled Atorvastatin Calcium (Atorvastatin Calcium) 20 Mg Tablet, 40 MG PO DAILY Blood Sugar Diagnostic (Advanced Glucose Test Strips) 1 Each Strip, 1 STRIP XX ASDIRECTED Empagliflozin (Jardiance) 10 Mg Tablet, 10 MG PO DAILY, (Reported) Fenofibrate Nanocrystallized (Fenofibrate) 145 Mg Tablet, 145 MG PO DAILY Gabapentin (Gabapentin) 300 Mg Capsule, 600 MG PO BID, (Reported) Glimepiride (Glimepiride) 1 Mg Tablet, 3 MG PO DAILY, (Reported) Icosapent Ethyl (Vascepa) 1 Gm Capsule, 2 GM PO DAILY, (Reported) Metformin HCl (Metformin HCl) 500 Mg Tab, 1,000 MG PO BID, (Reported) Omeprazole (Omeprazole) 20 Mg Cap, 20 MG PO DAILY, (Reported) Scheduled PRN Cyclobenzaprine HCl (Cyclobenzaprine HCl) 10 Mg Tablet, 10 MG PO TID PRN for MUSCLE SPASMS, (Reported) Loratadine (Loratadine) 10 Mg Tab, 10 MG PO DAILY PRN for CONGESTION, (Reported) Naproxen Sodium (Naproxen Sodium) 550 Mg Tab, 550 MG PO DAILY PRN for PAIN, (Reported) Tramadol HCl (Tramadol Hydrochloride) 50 Mg Tab, 50 MG PO BID PRN for PAIN, (Reported) Allergies Coded Allergies: Crews (Verified Allergy, Unknown, 10/09/17) Cephalosporins (Verified Allergy, Unknown, anaphylaxis, 12/26/19) Penicillins (Verified Allergy, Unknown, anaphylaxis, 12/26/19) bee venom protein (honey bee) (Verified Allergy, Unknown, anaphylaxis, 12/26/19) madsen (Verified Allergy, Unknown, anaphylaxis, 12/26/19) latex (Verified Allergy, Unknown, erythema, 12/26/19) FEROZ MARTINEZ MD Jan 10, 2020 09:37
== END 2020-01-10 14:13 | disposition home or self-care (01) | DRG 439 ==
LOC: M ED 14:04 → M ED INP 17:19 → ENRESERVTM 18:07 → ENRESERVDT 18:07 → M MSPAV 18:45 → M ICU 21:30 → M MSPAV 01-05 11:09
PROVIDERS: ADMIT Internal Medicine; ATTEND Internal Medicine
PROC: 02HV33Z Insertion of Infusion Device into Superior Vena Cava, Percutaneous Approach (ICD-10-PCS; principal; 2019-12-30 16:00)
DX: K85.90 Acute pancreatitis without necrosis or infection, unspecified (principal); N17.9 Acute kidney failure, unspecified; K56.7 Ileus, unspecified; J98.11 Atelectasis; E78.5 Hyperlipidemia, unspecified; E11.42 Type 2 diabetes mellitus with diabetic polyneuropathy; E78.1 Pure hyperglyceridemia; K58.0 Irritable bowel syndrome with diarrhea; E83.51 Hypocalcemia; E83.39 Other disorders of phosphorus metabolism; E83.42 Hypomagnesemia; K21.9 Gastro-esophageal reflux disease without esophagitis; K57.90 Diverticulosis of intestine, part unspecified, without perforation or abscess without bleeding; G47.33 Obstructive sleep apnea (adult) (pediatric); K76.0 Fatty (change of) liver, not elsewhere classified; R09.02 Hypoxemia; E87.6 Hypokalemia; D64.9 Anemia, unspecified; E66.9 Obesity, unspecified; Z68.33 Body mass index [BMI] 33.0-33.9, adult; Z79.84 Long term (current) use of oral hypoglycemic drugs; Z79.899 Other long term (current) drug therapy; Z88.0 Allergy status to penicillin; Z88.1 Allergy status to other antibiotic agents; Z91.030 Bee allergy status; Z91.018 Allergy to other foods; Z91.040 Latex allergy status